=== PATIENT | female | born 1940 | race Caucasian/White ===

== ENCOUNTER 2021-02-09 08:07 | Outpatient (REF) | payer MEDICARE, SELFPAY | END 2021-02-09 08:08 | disposition home or self-care (01) | LOC: HO.10HDL 08:07 | PROVIDERS: Visit Provider Internal Medicine | DX: Z13.89 Encounter for screening for other disorder (principal) ==

== ENCOUNTER 2021-02-09 08:12 | Outpatient (REF) | payer MEDICARE, SELFPAY ==
[2021-02-09 10:28] LABS: Cholesterol 167 mg/dL; HDL Cholesterol 64 mg/dL; LDL Cholesterol Calculated 89 mg/dl; Triglycerides 71 mg/dL
== END 2021-02-09 08:13 | disposition home or self-care (01) ==
LOC: HO.10HDL 08:12
PROVIDERS: Visit Provider Internal Medicine
DX: E11.9 Type 2 diabetes mellitus without complications (principal)
CPT/HCPCS: 36415; 80061

== ENCOUNTER 2021-05-16 07:42 | Outpatient (REF) | payer MEDICARE, SELFPAY ==
[2021-05-16 10:50] LABS: Alanine Aminotransferase 12 U/L (0-31); Albumin Level 3.9 g/dL (3.5-5.0); Alkaline Phosphatase 67 U/L (39-117); Anion Gap 14 (12-20); Aspartate Amino Transferase 19 U/L (5-31); Bilirubin Total 0.4 mg/dL (0.0-1.0); Blood Urea Nitrogen 26 mg/dL (9-16); Calcium 9.5 mg/dL (8.4-10.2); Carbon Dioxide 24 mmol/L (22-29); Chloride 108 mmol/L (96-108); Cholesterol 170 mg/dL; Estimated Glomerular Filt Rate 41; Glucose Fasting 102 mg/dL (60-99); HDL Cholesterol 64 mg/dL; LDL Cholesterol Calculated 89 mg/dl; Potassium 3.8 mmol/L (3.3-5.1); Sodium 142 mmol/L (135-145); Total Protein 6.3 g/dL (6.5-8.0); Triglycerides 85 mg/dL
== END 2021-05-16 07:43 | disposition home or self-care (01) ==
LOC: HO.10HDL 07:42
PROVIDERS: Visit Provider Internal Medicine
DX: E11.9 Type 2 diabetes mellitus without complications (principal); I10 Essential (primary) hypertension
CPT/HCPCS: 36415; 80053; 80061

== ENCOUNTER 2021-08-17 14:35 | Outpatient (REF) | payer MEDICARE, SELFPAY ==
--- NOTE | ~2021-08-17 | XR_ITS ---
EXAMINATION: XR CHEST CLINICAL INFORMATION: Pleurisy COMPARISON: Chest x-ray 11/19/2016 TECHNIQUE: 2 views of the chest were obtained. FINDINGS: Hyperinflation of lungs. No acute airways disease. There is no pleural effusion, no pneumothorax. The heart size is normal. The cardiac and mediastinal contours are normal. Kyphosis of dorsal spine. Multilevel compression deformities of the midthoracic vertebrae. There is been progressive loss of height of the T7 vertebrae. Similar loss of height to prior study of 2017 of the T4 and T6 vertebrae. Multilevel degenerative endplate spurring, degenerative disc disease. Old healed rib fractures of the posterior lateral right sixth and seventh ribs. XR/XR chest 2V IMPRESSION: 1. No acute abdomen abnormality. 2. Emphysema is hyperinflation of lungs. 3. Kyphosis of dorsal spine of multilevel compression deformities of the vertebrae.
== END 2021-08-17 14:36 | disposition home or self-care (01) ==
LOC: HO.XRAY 14:35
PROVIDERS: PCP Internal Medicine; Visit Provider Internal Medicine
DX: R09.1 Pleurisy (principal)
CPT/HCPCS: 71046

== ENCOUNTER 2022-03-16 08:41 | Outpatient (REF) | payer MEDICARE, SELFPAY ==
[2022-03-16 10:10] LABS: MANUAL DIFF FLAG NO
[2022-03-16 10:12] LABS: Basophils Absolute Auto 0.1 X10*3/uL (0.0-0.2); Basophils Percent Auto 0.9 % (0-2); Eosinophils Absolute Auto 0.3 X10*3/uL (0.0-0.4); Eosinophils Percent Auto 4.3 % (0-4); Hematocrit 42.8 % (37.0-47.0); Imm Gran Abs Auto 0.11 X10*3/uL (0.00-0.03); Imm Gran Pct Auto 1.6 % (0.0-0.4); Lymphocytes Absolute Auto 1.6 X10*3/uL (1.2-4.9); Lymphocytes Percent Auto 22.5 % (20-40); Mean Corpuscular HGB Conc 32.7 g/dl (31.0-35.0); Mean Corpuscular Hemoglobin 30.2 pg (27.0-33.0); Mean Corpuscular Volume 92.4 fL (80.0-98.0); Mean Platelet Volume 11.4 fL (9.4-12.3); Monocytes Absolute Auto 0.6 X10*3/uL (0.1-1.2); Monocytes Percent Auto 8.4 % (2-11); Neutrophils Absolute Auto 4.3 x10*3/uL (2.0-8.3); Neutrophils Percent Auto 62.3 % (45-73); Platelet Count 183 X10*3/uL (160-400); Red Blood Count 4.63 X10*6/uL (4.20-5.50); Red Cell Distribution Width 12.4 % (11.0-16.0); White Blood Count 6.9 X10*3/uL (4.8-10.8)
[2022-03-16 10:37] LABS: Alanine Aminotransferase 12 U/L (0-31); Albumin Level 3.8 g/dL (3.5-5.0); Alkaline Phosphatase 59 U/L (39-117); Anion Gap 11 (12-20); Aspartate Amino Transferase 21 U/L (5-31); Bilirubin Total 0.6 mg/dL (0.0-1.0); Blood Urea Nitrogen 28 mg/dL (9-16); Calcium 9.4 mg/dL (8.4-10.2); Carbon Dioxide 28 mmol/L (22-29); Chloride 106 mmol/L (96-108); Cholesterol 178 mg/dL; Estimated Glomerular Filt Rate 53; Glucose Fasting 94 mg/dL (60-99); HDL Cholesterol 66 mg/dL; LDL Cholesterol Calculated 96 mg/dl; Potassium 4.1 mmol/L (3.3-5.1); Sodium 141 mmol/L (135-145); Total Protein 6.2 g/dL (6.5-8.0); Triglycerides 84 mg/dL
[2022-03-16 10:43] LABS: Thyroid Stimulating Hormone 3.52 uIU/mL (0.32-4.0)
== END 2022-03-16 08:42 | disposition home or self-care (01) ==
LOC: HO.10HDL 08:41
PROVIDERS: Visit Provider Internal Medicine
DX: Z00.00 Encounter for general adult medical examination without abnormal findings (principal); E03.9 Hypothyroidism, unspecified; Z13.0 Encounter for screening for diseases of the blood and blood-forming organs and certain disorders involving the immune mechanism
CPT/HCPCS: 36415; 80053; 80061; 84443; 85025

== ENCOUNTER 2022-07-03 10:14 | Day surgery (SDC) | payer MEDICARE, SELFPAY ==
[2022-06-27 15:19] VITALS: BMI 24.8
--- NOTE | 2022-06-30 08:56 | HO.ANESPROP2 ---
Documented by User: Angela Bryan NP 06/30/22 08:57 HPI - Anesthesia Eval Consult details Narrative: 81yo F for Right Cataract Extraction IOL Insertion PCP cleared No previous cataract on record O2 @ 3L QHS and PRN PMFSH Active Problems Active Problems: All Active Problems (Updated 06/27/22 @ 15:23 by Kim Kohli RN) COPD (chronic obstructive pulmonary disease) (Acute) Adult general medical exam (Acute) Pleurisy (Acute) Hyperlipidemia (Acute) Hypertension (Acute) Past Medical History Medical History COPD (chronic obstructive pulmonary disease) Hyperlipidemia Hypertension On beta messi at home On home O2 Family History Family History Father Medical history unknown Mother Medical history unknown Brother No problems noted. Brother No problems noted. Son No problems noted. Son No problems noted. Daughter No problems noted. Surgical History Surgical History History of hip surgery History of surgery on arm Social History Social History Housing: House Are you a primary team primary care physician to a significant other at home: No Do you presently have visiting nurse or other home services: No Alcohol intake: never Patient Tobacco Use Status: Former Tobacco user Quit Date: 30 yrs ago Tobacco use type: Cigarette e-Cigarette/Vaping Use: Never Used Second Hand Smoke Exposure: No Use of substances other than those prescribed or required for medical reasons: No Have you been hit, kicked, punched, or otherwise hurt by someone within the past year? If so, by whom?: No Are you DNR?: No Advance Directives: No Advance Directives Information Provided: Yes Advance Directives on File: No Recently lost weight without trying: No Eating poorly because of decreased appetite: No Nutrition Risks: No Nutritional Risk Patient : No service: No Current occupational status: retired Current occupational exposures/hazards: No Cognitive needs: No Hearing needs: No Vision needs: No Meds Allergies Allergy/AdvReac Type Severity Reaction Status Date / Time sulfamethoxazole Allergy Unknown RASH Verified 06/23/22 09:02 [From BACTRIM] trimethoprim [From BACTRIM] Allergy Unknown RASH Verified 06/23/22 09:02 Exam Exam Date and Time: June 30, 2022 0856 Height,Weight and Vital Signs: Height 5 ft 6 in Weight 69.853 kg Assessment and Plan Assessment Anesthesia Assessment: Chart Reviewed Documented by User: Sola Cadet MD 07/03/22 11:41 PMFSH Past Medical History Medical History COPD (chronic obstructive pulmonary disease) Hyperlipidemia Hypertension On beta messi at home On home O2 Family History Family History Father Medical history unknown Mother Medical history unknown Brother No problems noted. Brother No problems noted. Son No problems noted. Son No problems noted. Daughter No problems noted. Family history of problems with anesthesia: No Surgical History Surgical History History of hip surgery History of surgery on arm History of Problems with Anesthesia: No Social History Social History Housing: House Are you a primary team primary care physician to a significant other at home: No Do you presently have visiting nurse or other home services: No Alcohol intake: never Patient Tobacco Use Status: Former Tobacco user Quit Date: 30 yrs ago Tobacco use type: Cigarette e-Cigarette/Vaping Use: Never Used Second Hand Smoke Exposure: No Use of substances other than those prescribed or required for medical reasons: No Have you been hit, kicked, punched, or otherwise hurt by someone within the past year? If so, by whom?: No Are you DNR?: No Advance Directives: No Advance Directives Information Provided: Yes Advance Directives on File: No Recently lost weight without trying: No Eating poorly because of decreased appetite: No Nutrition Risks: No Nutritional Risk Patient : No service: No Current occupational status: retired Current occupational exposures/hazards: No Cognitive needs: No Hearing needs: No Vision needs: No Meds Allergies Allergy/AdvReac Type Severity Reaction Status Date / Time sulfamethoxazole Allergy Unknown RASH Verified 06/23/22 09:02 [From BACTRIM] trimethoprim [From BACTRIM] Allergy Unknown RASH Verified 06/23/22 09:02 Exam Height,Weight and Vital Signs: Height 5 ft 6 in Weight 69.853 kg Vital Signs Temp Pulse Resp BP Pulse Ox O2 Del Method 07/03/22 11:30 97 F 83 26 H 154/101 H 90 L Room Air Airway Mallampati Class: II TM Dist: >3cm Neck ROM: Full Denture: Upper Partial: Lower Heart: RRR Lungs: CTAB. No wheezes Assessment and Plan Assessment Anesthesia Assessment: Anesthesia Plan Discussed Final Anesthetic Review Family History of Problems with Anesthesia: No History of Problems with Anesthesia: No NPO: Yes ASA Class: III Final Preanesthetic Review: No Changes in Pt Med Stat, Meds/Allgs Chart Reviewed, Consent Obtained/Reviewed and Anes Risks/Benef Reviewed Patient Risk: Intermediate Procedure Risk: Low Assessment/Block/Sedation in SS: Assess/Block/Sedation-SS Anesthetic Plan Anesthetic Plan: MAC: Disposition: Standard PACU
--- NOTE | 2022-06-30 09:23 | MHC.SHP ---
Pre-Procedural Eval Section A Date of Service: 06/30/22 The patient is an INPATIENT: No Changes since office visit: No Cold of Flu in the past 2 weeks, No New Medical Problems, No Changes in Medication and No Patient answered all questions The History & Physical has been completed within 30 days and I have reviewed it.: Yes Section B Chief Complaint: cataract Allergies: Allergies Allergy/AdvReac Type Severity Reaction Status Date / Time sulfamethoxazole Allergy Unknown RASH Verified 06/23/22 09:02 [From BACTRIM] trimethoprim [From BACTRIM] Allergy Unknown RASH Verified 06/23/22 09:02 Plan Diagnosis/Plan: Unchanged I have reviewed the history and physical and performed a pertinent physical examination on my patient. No changes have occurred unless specified.
[2022-07-03 11:30] VITALS: BP 154/101; PULSE 83; RESP 26; TEMP 36.1; O2SAT 90
[2022-07-03] MEDS: Phenylephrine HCL 2.5% Oph SoL 2 ML BOTTLE 1 DROP EYE-RIGHT ×3 (11:34→11:45)
[2022-07-03] MEDS: Tetracaine HCl/PF 0.5% Oph Sol 4 ML DROPS 1 DROP EYE-RIGHT (11:34)
[2022-07-03] MEDS: Cyclopentolate 1 % Ophth Sol 2 ML DRPBTL 1 DROP EYE-RIGHT ×3 (11:35→11:45)
[2022-07-03] MEDS: Tropicamide 1 % Ophth Sol 3 ML BTL 1 DROP EYE-RIGHT ×3 (11:35→11:45)
[2022-07-03] MEDS: Lactated Ringers 500 ML 50 ML IV (11:47)
--- NOTE | 2022-07-03 13:07 | HO.PNOPHT ---
Ophthalmology Procedure Procedure Date of Service: 07/03/22 Ophthalmology Viscoelastic: Madai Gil Dual Pack Pro Ophthalmology Lenses: TECJULIO CESAR [id number] (21) Procedure Notes: PREOPERATIVE DIAGNOSIS: Decreased visual acuity right eye secondary to cataract POSTOPERATIVE DIAGNOSIS: Same PROCEDURE: Right cataract extraction with intraocular lens insertion Anterior Vitrectomy SURGEON: Leroy Nesbitt M.D. ANESTHESIA: Topical/MAC ESTIMATED BLOOD LOSS: None COMPLICATIONS: Capsular tear After obtaining informed consent, the patient was brought to the operating room suite and placed in the supine position. After adequate sedation per anesthesia, topical drops of Tetracaine were given to the right eye. The eye was then prepped and draped in the usual sterile fashion. The operating room microscope was then positioned over the operative eye and a lid speculum placed. A paracentesis was created. Viscoelastic was then instilled into the anterior chamber. A three plane incision was then created temporally, utilizing a 2.85 mm keratome. Capsulotomy forceps were then utilized to create a circular tear capsulotomy. Hydrodissection and hydrodelineation were carried out until adequate mobilization of the nucleus occurred. Phacoemulsification was then utilized to remove the dense central nucleus. capsular tear was noted requiring an Anterior Vitrectomy. This was followed by removal of the cortical material utilizing the Vitrector. Viscoelastic was instilled into the anterior chamber followed by placement of a posterior chamber intraocular lens into the sulcuswithout difficulty. The residual Viscoelastic was then removed utilizing the automated IA machine. The wound was checked and found to be watertight. The patient tolerated the procedure well and the lid speculum was removed. Intracameral injection of Vigamox 0.1 mL followed by a subtenon injection of Kenalog-40 0.2 mL were administered. The patient will be seen in the a.m.
[2022-07-03 13:39] VITALS: BP 138/61; PULSE 63; RESP 18; TEMP 36.1; O2SAT 99
== END 2022-07-03 14:00 | disposition home or self-care (01) ==
PROVIDERS: PCP Internal Medicine; Visit Provider Ophthalmology
PROC: (CPT 66985; principal; 2022-07-03 13:00)
DX: H25.11 Age-related nuclear cataract, right eye (principal); H54.7 Unspecified visual loss; H59.211 Accidental puncture and laceration of right eye and adnexa during an ophthalmic procedure; Y84.8 Other medical procedures as the cause of abnormal reaction of the patient, or of later complication, without mention of misadventure at the time of the procedure; Y92.234 Operating room of hospital as the place of occurrence of the external cause; Y77.8 Miscellaneous ophthalmic devices associated with adverse incidents, not elsewhere classified; J44.9 Chronic obstructive pulmonary disease, unspecified; I10 Essential (primary) hypertension; E78.5 Hyperlipidemia, unspecified; Z79.899 Other long term (current) drug therapy; Z88.2 Allergy status to sulfonamides; Z87.891 Personal history of nicotine dependence
CPT/HCPCS: 66984; J2250; J3010; J3300; V2632

== ENCOUNTER 2022-07-17 08:40 | Day surgery (SDC) | payer MEDICARE, SELFPAY ==
[2022-06-27 15:29] VITALS: BMI 24.8
--- NOTE | 2022-07-13 15:28 | MHC.SHP ---
Pre-Procedural Eval Section A Date of Service: 07/13/22 The patient is an INPATIENT: No Changes since office visit: No Cold of Flu in the past 2 weeks, No New Medical Problems, No Changes in Medication and No Patient answered all questions The History & Physical has been completed within 30 days and I have reviewed it.: Yes Section B Chief Complaint: cataract Allergies: Allergies Allergy/AdvReac Type Severity Reaction Status Date / Time sulfamethoxazole Allergy Unknown RASH Verified 06/23/22 09:02 [From BACTRIM] trimethoprim [From BACTRIM] Allergy Unknown RASH Verified 06/23/22 09:02 Plan Diagnosis/Plan: Unchanged I have reviewed the history and physical and performed a pertinent physical examination on my patient. No changes have occurred unless specified.
--- NOTE | 2022-07-14 08:48 | HO.ANESPROP2 ---
Documented by User: Angela Bryan NP 07/14/22 08:49 HPI - Anesthesia Eval Consult details Narrative: 81yo F for Left Cataract Extraction IOL Insertion PCP cleared Right eye 07/03/22 with MAC: Fent 50, Midaz 0.5 O2 @ 3L QHS and prn PMFSH Active Problems Active Problems: All Active Problems (Updated 06/27/22 @ 15:23 by Kim Kohli RN) COPD (chronic obstructive pulmonary disease) (Acute) Adult general medical exam (Acute) Pleurisy (Acute) Hyperlipidemia (Acute) Hypertension (Acute) Past Medical History Medical History COPD (chronic obstructive pulmonary disease) Hyperlipidemia Hypertension On beta messi at home On home O2 Family History Family History Father Medical history unknown Mother Medical history unknown Brother No problems noted. Brother No problems noted. Son No problems noted. Son No problems noted. Daughter No problems noted. Family history of problems with anesthesia: No Surgical History Surgical History History of cataract extraction History of hip surgery History of surgery on arm History of Problems with Anesthesia: No Social History Social History Housing: House Are you a primary healthcare administrative assistant to a significant other at home: No Do you presently have visiting nurse or other home services: No Alcohol intake: never Patient Tobacco Use Status: Former Tobacco user Quit Date: 30 yrs ago Tobacco use type: Cigarette e-Cigarette/Vaping Use: Never Used Second Hand Smoke Exposure: No Use of substances other than those prescribed or required for medical reasons: No Have you been hit, kicked, punched, or otherwise hurt by someone within the past year? If so, by whom?: No Are you DNR?: No Advance Directives: No Advance Directives Information Provided: Yes Advance Directives on File: No Recently lost weight without trying: No Nutrition Risks: No Nutritional Risk service: No Current occupational status: retired Current occupational exposures/hazards: No Cognitive needs: No Hearing needs: No Vision needs: No Meds Allergies Allergy/AdvReac Type Severity Reaction Status Date / Time sulfamethoxazole Allergy Unknown RASH Verified 07/17/22 10:10 [From BACTRIM] trimethoprim [From BACTRIM] Allergy Unknown RASH Verified 07/17/22 10:11 Exam Exam Date and Time: July 14, 2022 0848 Height,Weight and Vital Signs: Height 5 ft 6 in Weight 69.853 kg Assessment and Plan Assessment Anesthesia Assessment: Chart Reviewed Final Anesthetic Review Family History of Problems with Anesthesia: No History of Problems with Anesthesia: No Documented by User: Naif Muir MD 07/17/22 10:15 PMF Past Medical History Medical History COPD (chronic obstructive pulmonary disease) Hyperlipidemia Hypertension On beta messi at home On home O2 Family History Family History Father Medical history unknown Mother Medical history unknown Brother No problems noted. Brother No problems noted. Son No problems noted. Son No problems noted. Daughter No problems noted. Surgical History Surgical History History of cataract extraction History of hip surgery History of surgery on arm Social History Social History Housing: House Are you a primary healthcare administrative assistant to a significant other at home: No Do you presently have visiting nurse or other home services: No Alcohol intake: never Patient Tobacco Use Status: Former Tobacco user Quit Date: 30 yrs ago Tobacco use type: Cigarette e-Cigarette/Vaping Use: Never Used Second Hand Smoke Exposure: No Use of substances other than those prescribed or required for medical reasons: No Have you been hit, kicked, punched, or otherwise hurt by someone within the past year? If so, by whom?: No Are you DNR?: No Advance Directives: No Advance Directives Information Provided: Yes Advance Directives on File: No Recently lost weight without trying: No Nutrition Risks: No Nutritional Risk service: No Current occupational status: retired Current occupational exposures/hazards: No Cognitive needs: No Hearing needs: No Vision needs: No Meds Allergies Allergy/AdvReac Type Severity Reaction Status Date / Time sulfamethoxazole Allergy Unknown RASH Verified 07/17/22 10:10 [From BACTRIM] trimethoprim [From BACTRIM] Allergy Unknown RASH Verified 07/17/22 10:11 Exam Airway Mallampati Class: II TM Dist: >3cm Neck ROM: Full Denture: Upper Partial: Lower Loose/Missing/Broken Teeth: Yes Heart: rrr+[id number] Lungs: cta b/l Assessment and Plan Assessment Anesthesia Assessment: Anesthesia Plan Discussed Final Anesthetic Review NPO: Yes ASA Class: III Final Preanesthetic Review: No Changes in Pt Med Stat, Meds/Allgs Chart Reviewed, Consent Obtained/Reviewed and Anes Risks/Benef Reviewed Patient Risk: Intermediate Procedure Risk: Low Assessment/Block/Sedation in SS: Assess/Block/Sedation-SS Anesthetic Plan Anesthetic Plan: MAC: and Agree w/ Assess. and Plan Disposition: Standard PACU
[2022-07-17] MEDS: Lactated Ringers 500 ML 50 ML IV (10:05)
[2022-07-17] MEDS: Tropicamide 1 % Ophth Sol 3 ML BTL 1 DROP EYE-LEFT ×3 (10:06→10:17)
[2022-07-17] MEDS: Cyclopentolate 1 % Ophth Sol 2 ML DRPBTL 1 DROP EYE-LEFT ×3 (10:06→10:17)
[2022-07-17] MEDS: Phenylephrine HCL 2.5% Oph SoL 2 ML BOTTLE 1 DROP EYE-LEFT ×3 (10:06→10:17)
[2022-07-17] MEDS: Tetracaine HCl/PF 0.5% Oph Sol 4 ML DROPS 1 DROP EYE-LEFT (10:06)
[2022-07-17] MEDS: Ketorolac Tromethamine 0.5% Op 5 ML DROPS 1 DROP EYE-LEFT ×3 (10:07→10:18)
[2022-07-17 10:16] VITALS: BP 176/76; PULSE 65; RESP 18; TEMP 36.6; O2SAT 100
--- NOTE | 2022-07-17 11:53 | HO.PNOPHT ---
Ophthalmology Procedure Procedure Date of Service: 07/17/22 Ophthalmology Viscoelastic: Healon Duet Dual Pack Pro Ophthalmology Lenses: TECNIS [id number] (20.5) Procedure Notes: PREOPERATIVE DIAGNOSIS: Decreased visual acuity left eye secondary to cataract POSTOPERATIVE DIAGNOSIS: Same PROCEDURE: Left cataract extraction with intraocular lens insertion SURGEON: Leroy Nesbitt M.D. ANESTHESIA: Topical/MAC ESTIMATED BLOOD LOSS: None COMPLICATIONS: None After obtaining informed consent, the patient was brought to the operation room suite and placed in the supine position. After adequate sedation per anesthesia, topical drops of Tetracaine were given to the left eye. The eye was then prepped and draped in the usual sterile fashion. The operating room microscope was then positioned over the operative eye and a lid speculum placed. A paracentesis was created. Viscoelastic was then instilled into the anterior chamber. A three plane incision was then created temporally, utilizing a 2.85 mm keratome. Capsulotomy forceps were then utilized to create a circular tear capsulotomy. Hydrodissection and hydrodelineation were carried out until adequate mobilization of the nucleus occurred. Phacoemulsification was then utilized to remove the dense central nucleus followed by removal of the cortical material utilizing the automated aspiration irrigation unit. Viscoat elastic was instilled into the posterior capsular bag followed by placement of a posterior chamber intraocular lens without difficulty. The residual Viscoat elastic was then removed utilizing the automated IA machine. The wound was check and found to be watertight. The patient tolerated the procedure well and the lid speculum was removed. Intracameral injection of Vigamox 0.1 mL followed by a subtenon injection of Kenalog-40 0.2 mL were administered. The patient will be seen in the a.m.
[2022-07-17 12:20] VITALS: BP 160/80; PULSE 65; RESP 16; TEMP 36.4; O2SAT 98
== END 2022-07-17 12:42 | disposition home or self-care (01) ==
PROVIDERS: PCP Internal Medicine; Visit Provider Ophthalmology
PROC: (CPT 66985; principal; 2022-07-17 10:50)
DX: H25.12 Age-related nuclear cataract, left eye (principal); H40.213 Acute angle-closure glaucoma, bilateral; H52.4 Presbyopia; I10 Essential (primary) hypertension; J44.9 Chronic obstructive pulmonary disease, unspecified; E78.00 Pure hypercholesterolemia, unspecified; Z79.51 Long term (current) use of inhaled steroids; Z79.899 Other long term (current) drug therapy; Z88.2 Allergy status to sulfonamides; Z87.891 Personal history of nicotine dependence
CPT/HCPCS: 66984; J2250; J3300; V2632

== ENCOUNTER 2023-06-29 08:23 | Outpatient (AMB) | payer MEDICARE, SELFPAY ==
[2023-06-29 08:32] VITALS: BP 134/76; PULSE 58; O2SAT 93; BMI 24.4
--- NOTE | 2023-06-29 08:32 | A.OFFPC_ITS ---
Vital Signs 06/29/23 08:32 Height 5 ft 6 in Weight 151 lb BMI 24.4 BP 134/76 Blood Pressure Location Rt brachial Position Sitting Pulse 58 Pulse Source Pulse Oximeter Pulse Oximetry (%) 93 Oxygen Delivery Method Room Air Intake Visit Reasons: 3mth f/u Allergies sulfamethoxazole [From BACTRIM] Allergy (Unknown, Verified 06/29/23 08:32) RASH trimethoprim [From BACTRIM] Allergy (Unknown, Verified 06/29/23 08:32) RASH Medication List - Last Reconciled 06/29/23 by Liam Lloyd MD albuterol sulfate 90 mcg/actuation 2 puffs inhalation Q4-6H PRN amlodipine 5 mg PO DAILY budesonide-formoterol 80-4.5 mcg/actuation (Symbicort) 2 puffs inhalation Q12H 90 days ipratropium bromide 17 mcg/actuation (Atrovent HFA) 2 inhalations PO QID metoprolol tartrate 50 mg PO DAILY simvastatin 20 mg PO DAILY triamterene-hydrochlorothiazid 37.5-25 mg 1 cap PO QAM Tobacco use date assessed: 11/29/22 Fall risk assessment: No Falls in past year Last assessed Fall Risk: 06/29/23 Dental Screening Dental Screen Date: 06/29/23 Did you have a dental visit in the last 12 months?: No Did you have a dental problem in the last 6 months where you did not have access to dental care?: No Was dental information given to patient?: No HPI 3mth f/u HPI Details COPD HTN hyperlip on rx; due for labs PFSH Medical History COPD (chronic obstructive pulmonary disease) Hyperlipidemia Hypertension On beta messi at home On home O2 Surgical History History of cataract extraction History of hip surgery History of surgery on arm Family History Father Medical history unknown Mother Medical history unknown Brother No problems noted. Brother No problems noted. Son No problems noted. Son No problems noted. Daughter No problems noted. Social History Housing: House Are you a primary hospice care transitions coordinator to a significant other at home: No Do you presently have visiting nurse or other home services: No Alcohol intake: never Patient Tobacco Use Status: Former Tobacco user Quit Date: 30 yrs ago Tobacco use type: Cigarette e-Cigarette/Vaping Use: Never Used Second Hand Smoke Exposure: No service: No Current occupational status: retired Current occupational exposures/hazards: No Cognitive needs: No Hearing needs: No Vision needs: No Questionnaire PHQ-9 Over the last 2 weeks, how often have you been bothered by any of the following problems? 1. Little interest or pleasure in doing things: not at all 2. Feeling down, depressed, or hopeless: not at all 3. Trouble falling or staying asleep, or sleeping too much: not at all 4. Feeling tired or having little energy: not at all 5. Poor appetite or overeating: not at all 6. Feeling bad about yourself - or that you are a failure or have let yourself or your family down: not at all 7. Trouble concentrating on things, such as reading the newspaper or watching television: not at all 8. Moving or speaking so slowly that other people could have noticed. Or the opposite - being so fidgety or restless that you have been moving around a lot more than usual: not at all 9. Thoughts that you would be better off or of hurting yourself in some way: not at all Total score: 0 Depression Screening Interpretation: Negative [id number] - PHQ-9 Billing: Yes Source: Developed by Drs. Yeyo Wright, Samira Srivastava, Ernie Mcdonald and colleagues, with an educational monica from [employer]. Thrive Questionnaire Date Thrive assessed: 11/29/22 AUDIT C Alcohol Use Questionnaire (AUDIT-C) 1. How often do you have a drink containing alcohol?: Never Total Score: 0 Score Reviewed/Action Taken: Yes SOFIA-7 AMB Questionnaire SOFIA-7 Date SOFIA - 7 assessed: 11/29/22 Source: Developed by Drs. Yeyo Wright, Samira Srivastava, Ernie Mcdonald and colleagues, with an educational monica from [employer]. Review of Systems Const Denies chills, Denies headache(s) and Denies weight loss ENT Denies headache(s) Card Denies chest pain, Denies syncope, Denies irregular heart rhythm and Denies dyspnea Resp Denies chest congestion, Denies cough and Denies dyspnea GI Denies abdominal pain, Denies change in stool character, Denies nausea and Denies vomiting Musc Denies deformity and Denies joint swelling Neuro Denies syncope and Denies headache(s) Physical exam (Primary Care) Vital Signs: Last Vital Signs Pulse 58 06/29/23 08:32 BP 134/76 06/29/23 08:32 Pulse Ox 93 06/29/23 08:32 Oxygen Delivery Method Room Air 06/29/23 08:32 BMI result Body Mass Index 24.4 Tobacco/Smoking Status: Tobacco use Status Tobacco use date assessed 11/29/22 06/29/23 08:37 Patient Tobacco Use Status Former Tobacco user 06/29/23 08:37 Tobacco use type Cigarette 06/29/23 08:37 e-Cigarette/Vaping Use Never Used 06/29/23 08:37 PHQ-9: PHQ-9 Score PHQ-9: Total score 0 06/29/23 08:37 Depression Screening Interpretation: Negative Thrive Assessment: Date of Thrive Assessment Date Thrive assessed 11/29/22 06/29/23 08:37 Const General: cooperative, comfortable, no acute distress and alert Neck Neck: Yes no lymphadenopathy Thyroid: Thyroid normal Resp Effort & Inspection: normal respiratory effort Auscultation: clear to auscultation bilaterally Percussion: percussion normal Cardio Jugular venous distension: no JVD Palpation: normal PMI Rate: regular rate Rhythm: regular rhythm Heart sounds: S1 normal heart sound present and S2 normal heart sound present GI Inspection: Yes normal to inspection Palpation (GI): No hepatosplenomegaly present Skin General skin exam: no rashes or lesions noted Extrem General: Yes no clubbing, cyanosis or edema Assessment and Plan Assessment & Plan (1) COPD (chronic obstructive pulmonary disease): Code(s): J44.9 - Chronic obstructive pulmonary disease, unspecified Plan: stable; same rx (2) Hyperlipidemia: Code(s): E78.5 - Hyperlipidemia, unspecified Plan: stable; same rx (3) Hypertension: Code(s): I10 - Essential (primary) hypertension Plan: stable; same rx Coding Level of Care Code Est Pt Level 4 (33159) Diagnoses COPD (chronic obstructive pulmonary disease) J44.9 Hyperlipidemia E78.5 Hypertension I10
== END 2023-06-29 08:55 | disposition home or self-care (01) ==
PROVIDERS: PCP Internal Medicine; Visit Provider Internal Medicine
DX: J44.9 Chronic obstructive pulmonary disease, unspecified (principal); E78.5 Hyperlipidemia, unspecified; I10 Essential (primary) hypertension
CPT/HCPCS: 99214

== ENCOUNTER 2023-08-20 15:40 | Emergency (ER) | payer MEDICARE, SELFPAY ==
--- NOTE | ~2023-08-20 | XR_ITS ---
EXAMINATION: XR HIP, RIGHT AND AP PELVIS CLINICAL INFORMATION: Pain COMPARISON: None available. TECHNIQUE: A frontal radiograph of the pelvis and frontal and frog lateral radiographs were acquired of the right hip. FINDINGS: A side plate and screw transfix the right femoral neck. No acute fracture is identified. The humeral head is located in the acetabulum intact. No pelvic fracture is evident. The sacrum and sacroiliac joints are unremarkable. XR/XR hip RT w PEL1V IMPRESSION: 1. Prior surgical fixation of the right proximal femur. 2. No acute right hip or pelvic fracture.
--- NOTE | ~2023-08-20 | XR_ITS ---
EXAMINATION: XR LUMBOSACRAL SPINE CLINICAL INFORMATION: Low back pain COMPARISON: None available. TECHNIQUE: Three views of the lumbosacral spine. FINDINGS: There is normal lumbar lordosis. There is loss of T12 vertebral height of indeterminate age. The lumbar vertebral heights and alignment are maintained normal. Lumbar disc heights are maintained normal. No lytic or sclerotic process seen. SI joints are symmetrical and normal. There is diffuse osteopenia. XR/XR lumbar spine 2-3V IMPRESSION: T12 vertebral compression fracture of indeterminate age. If patient has acute pain in this region, MRI or bone scan can be performed. There is no acute fracture, lytic or sclerotic process and lumbar spine. Diffuse osteopenia.
--- NOTE | 2023-08-20 16:01 | ED.GENADULT ---
HPI - General Adult General Chief complaint: Extremity Problem Stated complaint: right hip and buttocks pain Time Seen by Provider: 08/20/23 17:21 Source: patient Mode of arrival: ambulatory Limitations: no limitations History of Present Illness HPI narrative: 82-year-old female history of COPD on 2 L nasal cannula at baseline, hypertension presents for evaluation of lower back pain with intermittent radiation to right lower extremity to above the right knee, patient reports pain is been going on for the past few days worsening, she reports she went online and Google this and found some stretches which may have made the pain worse. She denies any associated trauma. Denies weakness, urinary/bowel incontinence/retention, numbness, tingling, fevers, chills. Has been taking acetaminophen with little to no relief. Reports ambulating has been difficult secondary to pain. Related Data Previous Rx's Medication Instructions Recorded albuterol sulfate 90 mcg/actuation 2 puff inhalation Q4-6H PRN 11/15/20 aerosol inhaler shortness of breath or wheezing #8.5 grams budesonide-formoterol HFA 80 2 puff inhalation Q12H 90 days 11/21/22 mcg-4.5 mcg/actuation aerosol #30.6 grams inhaler (Symbicort) ipratropium bromide 17 2 inh PO QID #51.6 grams 11/26/22 mcg/actuation HFA aerosol inhaler (Atrovent HFA) triamterene 37.5 1 cap PO QAM #90 caps 11/29/22 mg-hydrochlorothiazide 25 mg capsule amlodipine 5 mg tablet 5 mg PO DAILY #90 tabs 07/18/23 metoprolol tartrate 50 mg tablet 50 mg PO DAILY #90 tabs 07/18/23 simvastatin 20 mg tablet 20 mg PO DAILY #90 tabs 07/18/23 lidocaine 5 % topical patch 1 patch topical DAILY PRN pain #15 08/20/23 ea morphine 15 mg immediate release 15 mg PO Q6H PRN pain 5 days #10 08/20/23 tablet tabs Allergies Allergy/AdvReac Type Severity Reaction Status Date / Time sulfamethoxazole Allergy Unknown RASH Verified 06/29/23 08:32 [From BACTRIM] trimethoprim [From BACTRIM] Allergy Unknown RASH Verified 06/29/23 08:32 Review of Systems Review of Systems: Constitutional : No Weight loss, No Fever, No Chills, ENT/Mouth : No Hearing loss, No Ear Pain, No Nasal Congestion, No Sinus Pain, No Hoarseness, No sore throat, No Rhinorrhea, No Swallowing Difficulty Cardiovascular : No Chest Pain, No SOB Respiratory : No Cough, No Dyspnea Gastrointestinal : No Nausea, No Vomiting, No Diarrhea, No abdominal Pain, No Hematochezia, No Melena Genitourinary : No Dysuria, No Urinary Frequency, No Hematuria, No Urinary Incontinence, Musculoskeletal : positive back pain Skin : No Skin Lesions, No rash Neuro : No Weakness, No Numbness, No Paresthesias, no loss of bowel or bladder incontinence, no saddle anesthesia Yes all other systems are reviewed and are negative [facility] Past Medical History Attestation statement: The following information was validated with the patient. Source: old records reviewed and nursing notes reviewed Medical History COPD (chronic obstructive pulmonary disease) Hyperlipidemia Hypertension On beta messi at home On home O2 Surgical History History of cataract extraction History of hip surgery History of surgery on arm Family History Family History Father Medical history unknown Mother Medical history unknown Brother No problems noted. Brother No problems noted. Son No problems noted. Son No problems noted. Daughter No problems noted. Social History Social History Housing: House Are you a primary direct care supervisor to a significant other at home: No Do you presently have visiting nurse or other home services: No Alcohol intake: never Patient Tobacco Use Status: Former Tobacco user Quit Date: 30 yrs ago Tobacco use type: Cigarette e-Cigarette/Vaping Use: Never Used Second Hand Smoke Exposure: No Advance Directives: No Advance Directives Information Provided: No service: No Current occupational status: retired Current occupational exposures/hazards: No Cognitive needs: No Hearing needs: No Vision needs: No Physical Exam ED Vital Signs: Vital Signs - 24 hr 08/20/23 16:04 Temperature 98.0 F Pulse Rate 74 Respiratory Rate 18 Blood Pressure 155/74 H Pulse Oximetry 93 Oxygen Delivery Method Room Air BMI result Body Mass Index 25.7 vss Appearance: Alert.? Oriented X3.? No acute distress.? Head: Normocephalic, atraumatic, no step-offs or deformities Eyes: Pupils equal, round and reactive to light.? ENT: Pharynx normal.? Neck: Normal inspection.? Neck supple.? CVS: Normal heart rate and rhythm.? Pulses normal.? Respiratory: No respiratory distress.? Breath sounds normal.? Abdomen: Soft and nontender.? Skin: Skin warm and dry.? Normal skin color.? Normal skin turgor.? Extremities: No lower extremity edema.? No calf ttp. 5/5 strength to bilateral upper and lower extremities Back: No midline tenderness, no C-spine tenderness, full range of motion, no CVA tenderness bilaterally no discomfort with palpation of vertebral spine in the lumbar, thoracic or cervical region. No paraspinous tenderness. Patient reports pain with range of motion. Ambulating with slow steady gait. Neuro: Oriented X 3.? No motor deficit.? No sensory deficit. CN 2-12 intact Course Course Course Narrative: RME performed by Yesica Guajardo PA-C. Patient is an 82 year old assigned female at presenting to the emergency department with right hip and buttock pain. Imaging ordered. Patient placed back in the waiting room pending room availability and results. Reevaluation(s) Reevaluation #1: X-ray of lumbar spine showing a T12 vertebral compression fracture of indeterminate age, no point tenderness on exam. No acute fracture lytic or sclerotic process to the lumbar spine. Diffuse osteopenia. X-ray of hip and pelvis no acute right hip or pelvic fracture. Prior surgical fixation of the right proximal femur. No acute findings. Will give morphine for pain, Lidoderm patch and re-evaluate. Educated patient on diagnosis and treatment plan, answered all question, patient verbalizes understanding. At this time patient will be discharged home, advised to return with new or worsening symptoms. Educated on worrisome signs and symptoms and when to return. At this time I feel comfortable discharge home. Time: 18:48 Medical Decision Making Medical Decision Making MDM Narrative: 82-year-old female presents with back pain without red flag symptoms for the past few days not improving with acetaminophen. Here with daughter. Physical exam slight pain with range of motion. No midline tenderness. No associated paraspinous muscle spasm. Negative straight leg raise bilaterally. Slow ambulation. No saddle paresthesia. No focal neuro deficits. Likely lumbago versus lumbar radiculopathy versus sciatica will rule out compression fractures. No signs of cauda equina, cord compression, epidural abscess. Plan imaging Differential Diagnosis Differential Diagnoses: The differential diagnosis associated with the presentation includes Likely lumbago versus lumbar radiculopathy versus sciatica will rule out compression fractures. No signs of cauda equina, cord compression, epidural abscess. Admission/Observation Consideration of admission/observation: Escalation of care including admission/observation considered Independent Interpretation I performed an independent interpretation of an: Plain X-Ray Radiology Impression Discussion of test interpretation with radiology: I have reviewed the radiologist's reading. Independent Historian Clinical information obtained from an independent historian. History obtained from or confirmed by: Other (Daughter) Prescription Management I considered prescription management with: Pain Medication (Morphine went over risks of taking this medication and safe use, daughter and patient verbalized agreement to taking this with caution.) Discharge Plan Discharge Clinical Impression: Lower back pain, T12 compression fracture Patient Disposition: Home, Self-Care Instructions: Vertebral Compression Fracture (ED), Back Pain (ED) Additional Instructions: Take your medications as prescribed. If you were prescribed antibiotics today, it is important that you take your medication to their entirety, do not skip any doses, do not finish them early. Follow-up with your primary care provider this week. Return to the emergency department with new or worsening symptoms. Such as fevers, chills, chest pain, shortness of breath, nausea, vomiting, dizziness, headache, vision changes, lethargy In case of emergency call 911 A narcotic has been sent to your pharmacy please take this as prescribed. Do not take more than the prescribed dose. Narcotic medications can cause addiction. Please do not mix them with alcohol. Do not take them while driving or operating machinery. Do not take them with any other narcotics. Do not share them with friends or family. They can cause constipation, consider taking [id number] stool softener. Take them only for severe pain. XR/XR lumbar spine 2-3V IMPRESSION: T12 vertebral compression fracture of indeterminate age. If patient has acute pain in this region, MRI or bone scan can be performed. There is no acute fracture, lytic or sclerotic process and lumbar spine. Diffuse osteopenia. XR/XR hip RT w PEL1V IMPRESSION: 1. Prior surgical fixation of the right proximal femur. 2. No acute right hip or pelvic fracture. Prescriptions: New lidocaine 5 % adhesive patch,medicated 1 patch topical DAILY PRN (Reason: pain) Qty: 15 0RF Rx Instructions: leave on most painful area for up to 12 hrs morphine 15 mg tablet 15 mg PO Q6H PRN (Reason: pain) 5 Days Qty: 10 0RF Rx Instructions: Partial Fill upon patient request. No Action albuterol sulfate 90 mcg/actuation HFA aerosol inhaler 2 puff inhalation Q4-6H PRN (Reason: shortness of breath or wheezing) Qty: 8.5 8RF budesonide-formoterol [Symbicort] 80-4.5 mcg/actuation HFA aerosol inhaler 2 puff inhalation Q12H 90 Days Qty: 30.6 8RF Atrovent HFA 17 mcg/actuation HFA aerosol inhaler 2 inh PO QID Qty: 51.6 3RF triamterene-hydrochlorothiazid 37.5-25 mg capsule 1 cap PO QAM Qty: 90 8RF metoprolol tartrate 50 mg tablet 50 mg PO DAILY Qty: 90 8RF simvastatin 20 mg tablet 20 mg PO DAILY Qty: 90 8RF amlodipine 5 mg tablet 5 mg PO DAILY Qty: 90 8RF Referrals: [facility] [Provider Group] - 2 days Liam Lloyd MD [Primary Care Provider] - 2 days Stand Alone Forms: Work/School Release
[2023-08-20 16:04] VITALS: BP 155/74; PULSE 74; RESP 18; TEMP 36.7; O2SAT 93; BMI 25.7
[2023-08-20] MEDS: Morphine Sulfate Immed Release 15 MG TABLET PO (18:46)
[2023-08-20] MEDS: Lidocaine 4 % Patch ADH..PATCH 1 PATCH TRANSDERMA (18:46)
--- NOTE | 2023-08-20 18:49 | PC.NURSE ---
pt medicated per NOV for 510 lower back and rt hip.
== END 2023-08-20 19:14 | disposition home or self-care (01) ==
PROVIDERS: Emergency Provider Student in an Organized Health Care Education/Training Program; PCP Internal Medicine
DX: M54.50 Low back pain, unspecified (principal); M48.54XA Collapsed vertebra, not elsewhere classified, thoracic region, initial encounter for fracture; I10 Essential (primary) hypertension; E78.5 Hyperlipidemia, unspecified; J44.9 Chronic obstructive pulmonary disease, unspecified; Z99.81 Dependence on supplemental oxygen; Z79.02 Long term (current) use of antithrombotics/antiplatelets; Z87.891 Personal history of nicotine dependence
CPT/HCPCS: 72100; 73502; 99283

== ENCOUNTER 2023-11-16 08:35 | Outpatient (AMB) | payer MEDICARE, SELFPAY ==
[2023-11-16 08:43] VITALS: BP 142/70; PULSE 64; O2SAT 89
--- NOTE | 2023-11-16 08:43 | MHC.PC.OV ---
Vital Signs 11/16/23 08:43 Height 5 ft 4 in BMI Reason not done Patient refused/unable BP 142/70 H Blood Pressure Location Rt brachial Position Sitting Pulse 64 Pulse Source Pulse Oximeter Pulse Oximetry (%) 89 L Oxygen Delivery Method Room Air Intake Visit Reasons: 3mth follow up Hypothyroidism Asp Web Developer: Not Required per policy Accompanied by: Self / Same As Patient Allergies sulfamethoxazole [From BACTRIM] Allergy (Unknown, Verified 11/16/23 08:43) RASH trimethoprim [From BACTRIM] Allergy (Unknown, Verified 11/16/23 08:43) RASH Medication List - Last Reconciled 11/16/23 by Liam Lloyd MD albuterol sulfate 90 mcg/actuation 2 puffs inhalation Q4-6H PRN amlodipine 5 mg PO DAILY fluticasone propion-salmeterol 250-50 mcg/dose (Wixela Inhub) 1 inh inhalation BID fluticasone propion-salmeterol 45-21 mcg/actuation (Advair HFA) 2 puffs inhalation BID ipratropium bromide 17 mcg/actuation (Atrovent HFA) 2 inhalations PO QID lidocaine 5% 1 patch topical DAILY PRN metoprolol tartrate 50 mg PO DAILY morphine 15 mg PO Q6H PRN 5 days simvastatin 20 mg PO DAILY triamterene-hydrochlorothiazid 37.5-25 mg 1 cap PO QAM Tobacco use date assessed: 11/16/23 Fall risk assessment: No Falls in past year Last assessed Fall Risk: 11/16/23 Dental Screening Dental Screen Date: 11/16/23 Did you have a dental visit in the last 12 months?: Yes Did you have a dental problem in the last 6 months where you did not have access to dental care?: No Was dental information given to patient?: Patient has dentist HPI 3mth follow up Hypothyroidism HPI Details COPD HTN and hyperlip; stable on rx PFSH Medical History COPD (chronic obstructive pulmonary disease) Hyperlipidemia Hypertension On beta messi at home On home O2 Surgical History History of cataract extraction History of surgery on arm History of hip surgery Family History Father Medical history unknown Mother Medical history unknown Brother No problems noted. Brother No problems noted. Son No problems noted. Son No problems noted. Daughter No problems noted. Social History Housing: House Are you a primary infant childcare provider to a significant other at home: No Do you presently have visiting nurse or other home services: No Alcohol intake: never Patient Tobacco Use Status: Former Tobacco user Quit Date: 30 yrs ago Tobacco use type: Cigarette e-Cigarette/Vaping Use: Never Used Second Hand Smoke Exposure: No service: No Current occupational status: retired Current occupational exposures/hazards: No Cognitive needs: Yes Hearing needs: No Vision needs: No Questionnaire PHQ-9 Over the last 2 weeks, how often have you been bothered by any of the following problems? 1. Little interest or pleasure in doing things: not at all 2. Feeling down, depressed, or hopeless: not at all 3. Trouble falling or staying asleep, or sleeping too much: not at all 4. Feeling tired or having little energy: not at all 5. Poor appetite or overeating: not at all 6. Feeling bad about yourself - or that you are a failure or have let yourself or your family down: not at all 7. Trouble concentrating on things, such as reading the newspaper or watching television: not at all 8. Moving or speaking so slowly that other people could have noticed. Or the opposite - being so fidgety or restless that you have been moving around a lot more than usual: not at all 9. Thoughts that you would be better off or of hurting yourself in some way: not at all Total score: 0 Depression Screening Interpretation: Negative Depression Screening Done: Yes 50522 - PHQ-9 Billing: Yes Source: Developed by Drs. Yeyo Wright, Samira Srivastava, Ernie Mcdonald and colleagues, with an educational monica from [employer]. Thrive Questionnaire Date Thrive assessed: 11/16/23 I am a: Patient What is your living situation today?: I have a steady place to live Within the past 12 months, did the food you bought not last and you didn't have the money to get more?: Never true Within the past 12 months, did you worry whether your food would run out before you got money to buy more?: Never true Do you have trouble paying for medicines?: No Do you have trouble getting transportation to medical appointments?: No Do you have trouble paying your heating and electricity bill?: No Do you have trouble taking care of your child, family member or friend?: No Do you have trouble with day-to-day activities such as bathing, preparing meals, shopping, managing finances, etc.?: No Are you currently unemployed and looking for a job?: No Are you interested in more education?: No Please select the resources that you would like help with: None THRIVE Score: 0 AUDIT C Alcohol Use Questionnaire (AUDIT-C) 1. How often do you have a drink containing alcohol?: Never Total Score: 0 Score Reviewed/Action Taken: Yes SOFIA-7 AMB Questionnaire SOFIA-7 Date SOFIA - 7 assessed: 11/16/23 Feeling nervous, anxious, or on edge: 0 = Not at all Not being able to stop or control worryin = Not at all Worrying too much about different things: 0 = Not at all Trouble relaxin = Not at all Being so restless that it is hard to sit still: 0 = Not at all Becoming easily annoyed or irritable: 0 = Not at all Feeling afraid as if something awful might happen: 0 = Not at all Total SOFIA-7 score (0-4 normal; 5-9 mild; 10-14 moderate; 15-21 severe): 0 Source: Developed by Drs. Yeyo Wright, Samira Srivastava, Ernie Mcdonald and colleagues, with an educational monica from [employer]. Review of Systems Const Denies chills, Denies headache(s) and Denies weight loss ENT Denies headache(s) Card Denies chest pain, Denies syncope, Denies irregular heart rhythm and Denies dyspnea Resp Denies chest congestion, Denies cough and Denies dyspnea GI Denies abdominal pain, Denies change in stool character, Denies nausea and Denies vomiting Musc Denies deformity and Denies joint swelling Neuro Denies syncope and Denies headache(s) Physical exam (Primary Care) Vital Signs: Last Vital Signs Pulse 64 11/16/23 08:43 BP 142/70 H 11/16/23 08:43 Pulse Ox 89 L 11/16/23 08:43 Oxygen Delivery Method Room Air 11/16/23 08:43 Tobacco/Smoking Status: Tobacco use Status Tobacco use date assessed 11/16/23 11/16/23 08:44 Patient Tobacco Use Status Former Tobacco user 11/16/23 08:44 Tobacco use type Cigarette 11/16/23 08:44 e-Cigarette/Vaping Use Never Used 11/16/23 08:44 PHQ-9: PHQ-9 Score PHQ-9: Total score 0 11/16/23 08:44 Depression Screening Interpretation: Negative Thrive Assessment: Date of Thrive Assessment Date Thrive assessed 11/16/23 11/16/23 08:44 Const General: cooperative, comfortable, no acute distress and alert Neck Neck: Yes no lymphadenopathy Thyroid: Thyroid normal Resp Effort & Inspection: normal respiratory effort Auscultation: clear to auscultation bilaterally Percussion: percussion normal Cardio Jugular venous distension: no JVD Palpation: normal PMI Rate: regular rate Rhythm: regular rhythm Heart sounds: S1 normal heart sound present and S2 normal heart sound present GI Inspection: Yes normal to inspection Palpation (GI): No hepatosplenomegaly present Skin General skin exam: no rashes or lesions noted Extrem General: Yes no clubbing, cyanosis or edema Assessment and Plan Assessment & Plan (1) COPD (chronic obstructive pulmonary disease): Code(s): J44.9 - Chronic obstructive pulmonary disease, unspecified Plan: stable; same rx (2) Hyperlipidemia: Code(s): E78.5 - Hyperlipidemia, unspecified Plan: stable; check labs (3) Hypertension: Code(s): I10 - Essential (primary) hypertension Plan: stable; sane rx Orders: Orders XR DEXA axial skeleton Today M85.80 - Other specified disorders of bone density and structure, unspecified site Lipid Panel Today E78.5 - Hyperlipidemia, unspecified Complete Blood Count Auto Diff Today D64.9 - Anemia, unspecified Comprehensive [place]. Panel Fast Today N28.9 - Disorder of kidney and ureter, unspecified Medications: Refilled fluticasone propion-salmeterol 250-50 mcg/dose (Wixela Inhub) 1 inh inhalation BID 180 ea 3RF Coding Level of Care Code Est Pt Level 4 (23400) Diagnoses COPD (chronic obstructive pulmonary disease) J44.9 Hyperlipidemia E78.5 Hypertension I10
== END 2023-11-16 09:00 | disposition home or self-care (01) ==
PROVIDERS: PCP Internal Medicine; Visit Provider Internal Medicine
DX: J44.9 Chronic obstructive pulmonary disease, unspecified (principal); E78.5 Hyperlipidemia, unspecified; I10 Essential (primary) hypertension
CPT/HCPCS: 99214

== ENCOUNTER 2023-11-28 08:41 | Outpatient (REF) | payer MEDICARE, SELFPAY ==
--- NOTE | ~2023-11-28 | MM_ITS ---
EXAMINATION: BONE DENSITOMETRY CLINICAL INDICATION: Other specified disorders of bone density and structure, unspecified. COMPARISON: Baseline BD dated 10/17/2011. TECHNIQUE: Using a [employer] DXA System (software version: 13.1) manufactured by [employer], dual-energy x-ray absorptiometry was performed of the lumbar spine and left hip. The images are of good technical quality. Summary results are attached. FINDINGS: LEFT FEMUR, NECK: Current: BMD 0.613 g/cm2, Z-score -0.7, T-score -3.1, osteoporosis. Baseline: BMD 0.648 g/cm2. LEFT FEMUR, TOTAL: Current: BMD 0.568 g/cm2, Z-score -1.3, T-score -3.5, osteoporosis, 14.7% decrease from baseline (<5% change is not significant). Baseline: BMD 0.666 g/cm2. AP SPINE L1-L4: Current: BMD 0.885 g/cm2, Z-score -0.5, T-score -2.5, osteoporosis, 14.3% decrease from baseline (<5% change is not significant). Baseline: BMD 1.033 g/cm2. IDENTIFIED RISK FACTORS: Menopause, parental hip fracture, history of fracture (adult). HISTORY OF FRACTURE: Hip, spine, wrist. MEDICATIONS: Vitamin D. MM/XR DEXA axial skeleton IMPRESSION: 1. DIAGNOSIS: Severe osteoporosis based on the lowest T-score value of -3.5 in the femoral neck and history of fracture applying World Health Organization criteria. 2. 10-YEAR FRACTURE RISK PREDICTION, FRAX: According to the guidelines, FRAX calculation should only be performed on patients in the osteopenia bone density category. Therefore, FRAX was not performed on this patient. 3. Treatment Recommendations: NOF guidelines recommend consideration for treatment in postmenopausal women and men age 50 and older presenting with the following: -A hip or vertebral (clinical or morphometric) fracture. -T-score less than or equal to -2.5 at the femoral neck or spine after appropriate evaluation to exclude secondary causes. -Low bone mass at the hip or spine and a 10-year fracture probability by FRAX of greater than or equal to 3% for hip fracture or greater than or equal to 20% for major osteoporotic fracture based on the [place] adapted WHO algorithm. 4. Other Recommendations: All treatment decisions require clinical judgment and consideration of individual patient factors, including patient preferences, comorbidities, previous drug use, risk factors not captured in the FRAX model (e.g. frailty, falls, vitamin D deficiency, increased bone turnover, interval significant decline in bone density) and possible under or overestimation of fracture risk by FRAX. Additional medical evaluation for secondary cause of low bone mineral density may be appropriate. FUTURE SCAN RECOMMENDATION: People with diagnosed cases of osteoporosis or at high risk for fracture should have regular bone mineral density tests. For patients eligible for Medicare, routine testing is allowed once every 2 years. The testing frequency can be increased to one year for patients who have rapidly progressing disease, those who are receiving or discontinuing medical therapy to restore bone mass, or have additional risk factors.
== END 2023-11-28 08:42 | disposition home or self-care (01) ==
LOC: HO.MAMMO 08:41
PROVIDERS: PCP Internal Medicine; Visit Provider Internal Medicine
DX: Z13.820 Encounter for screening for osteoporosis (principal); Z78.0 Asymptomatic menopausal state; M85.80 Other specified disorders of bone density and structure, unspecified site
CPT/HCPCS: 77080

== ENCOUNTER 2024-03-26 10:42 | Outpatient (AMB) | payer MEDICARE, SELFPAY ==
[2024-03-26 10:49] VITALS: BP 138/62; PULSE 62; O2SAT 90; BMI 24.0
--- NOTE | 2024-03-26 10:49 | A.OFFPC_ITS ---
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 Accompanied by: Self / Same As Patient Allergies sulfamethoxazole [From BACTRIM] Allergy (Unknown, Verified 03/26/24 10:50) RASH trimethoprim [From BACTRIM] Allergy (Unknown, Verified 03/26/24 10:50) RASH Medication List - Last Reconciled 03/27/24 by Liam Lloyd MD albuterol sulfate 90 mcg/actuation 2 puffs inhalation Q4-6H PRN amlodipine 5 mg PO DAILY fluticasone propion-salmeterol 250-50 mcg/dose (Wixela Inhub) 1 inh inhalation BID fluticasone propion-salmeterol 45-21 mcg/actuation (Advair HFA) 2 puffs inhalation BID ipratropium bromide 17 mcg/actuation (Atrovent HFA) 2 inhalations PO QID lidocaine 5% 1 patch topical DAILY PRN metoprolol tartrate 50 mg PO DAILY morphine 15 mg PO Q6H PRN 5 days simvastatin 20 mg PO DAILY triamterene-hydrochlorothiazid 37.5-25 mg 1 cap PO QAM Tobacco use date assessed: 11/16/23 Fall risk assessment: No Falls in past year Last assessed Fall Risk: 03/26/24 Dental Screening Dental Screen Date: 11/16/23 HPI 3 month f/u HPI Details COPD on rx and 02; stable and doing well PFSH Medical History COPD (chronic obstructive pulmonary disease) Hyperlipidemia Hypertension On beta messi at home On home O2 Surgical History History of cataract extraction History of surgery on arm History of hip surgery Family History Father Medical history unknown Mother Medical history unknown Brother No problems noted. Brother No problems noted. Son No problems noted. Son No problems noted. Daughter No problems noted. Social History (Reviewed 03/19/23 @ 08:31 by Alyson Perla Housing: House Are you a primary multi care technician to a significant other at home: No Do you presently have visiting nurse or other home services: No Alcohol intake: never Patient Tobacco Use Status: Former Tobacco user Tobacco use type: Cigarette e-Cigarette/Vaping Use: Never Used Second Hand Smoke Exposure: No service: No Current occupational status: retired Current occupational exposures/hazards: No Cognitive needs: Yes Hearing needs: No Vision needs: No Questionnaire Thrive Questionnaire Date Thrive assessed: 11/16/23 SOFIA-7 AMB Questionnaire SOFIA-7 Date SOFIA - 7 assessed: 11/16/23 Source: Developed by Drs. Yeyo Wright, Samira Srivastava, Ernie Mcdonald and colleagues, with an educational monica from [employer]. Review of Systems Const Denies chills, Denies headache(s) and Denies weight loss ENT Denies headache(s) Card Denies chest pain, Denies syncope, Denies irregular heart rhythm and Denies dyspnea Resp Denies chest congestion, Denies cough and Denies dyspnea GI Denies abdominal pain, Denies change in stool character, Denies nausea and Denies vomiting Musc Denies deformity and Denies joint swelling Neuro Denies syncope and Denies headache(s) Physical exam (Primary Care) Vital Signs: Last Vital Signs Pulse 62 03/26/24 10:49 BP 138/62 03/26/24 10:49 Pulse Ox 90 L 03/26/24 10:49 Oxygen Delivery Method Room Air 03/26/24 10:49 BMI result Body Mass Index 24.0 Tobacco/Smoking Status: Tobacco use Status Tobacco use date assessed 11/16/23 03/26/24 10:54 Patient Tobacco Use Status Former Tobacco user 03/26/24 10:54 Tobacco use type Cigarette 03/26/24 10:54 e-Cigarette/Vaping Use Never Used 03/26/24 10:54 Thrive Assessment: Date of Thrive Assessment Date Thrive assessed 11/16/23 03/26/24 10:54 Const General: cooperative, comfortable, no acute distress and alert Neck Neck: Yes no lymphadenopathy Thyroid: Thyroid normal Resp Effort & Inspection: normal respiratory effort Auscultation: clear to auscultation bilaterally Percussion: percussion normal Cardio Jugular venous distension: no JVD Palpation: normal PMI Rate: regular rate Rhythm: regular rhythm Heart sounds: S1 normal heart sound present and S2 normal heart sound present GI Inspection: Yes normal to inspection Palpation (GI): No hepatosplenomegaly present Skin General skin exam: no rashes or lesions noted Extrem General: Yes no clubbing, cyanosis or edema Assessment and Plan Assessment & Plan (1) COPD (chronic obstructive pulmonary disease): Code(s): J44.9 - Chronic obstructive pulmonary disease, unspecified Plan: stable; same rx Medications: Refilled albuterol sulfate 90 mcg/actuation 2 puffs inhalation Q4-6H PRN 8.5 grams 8RF shortness of breath or wheezing Coding Level of Care Code Est Pt Level 3 (93971) Diagnoses COPD (chronic obstructive pulmonary disease) J44.9
== END 2024-03-26 11:03 | disposition home or self-care (01) ==
PROVIDERS: PCP Internal Medicine; Visit Provider Internal Medicine
DX: J44.9 Chronic obstructive pulmonary disease, unspecified (principal)
CPT/HCPCS: 99213

== ENCOUNTER 2024-06-27 09:17 | Outpatient (AMB) | payer MEDICARE, SELFPAY ==
[2024-06-27 09:18] VITALS: BP 158/82; PULSE 57; O2SAT 94; BMI 24.5
--- NOTE | 2024-06-27 09:18 | MHC.PC.OV ---
Vital Signs 06/27/24 09:18 Height 5 ft 4 in Weight 143 lb BMI 24.5 BP 158/82 H Blood Pressure Location Lt brachial Position Sitting Pulse 57 Pulse Source Pulse Oximeter Pulse Oximetry (%) 94 Oxygen Delivery Method Nasal Cannula Oxygen Flow Rate 3 Intake Visit Reasons: 3 Month F/U Chief Executive Required: No Accompanied by: Self / Same As Patient Allergies sulfamethoxazole [From BACTRIM] Allergy (Unknown, Verified 06/27/24 09:21) RASH trimethoprim [From BACTRIM] Allergy (Unknown, Verified 06/27/24 09:21) RASH Medication List - Last Reconciled 06/27/24 by Liam Lloyd MD albuterol sulfate 90 mcg/actuation 2 puffs inhalation Q4-6H PRN amlodipine 5 mg PO DAILY fluticasone propion-salmeterol 250-50 mcg/dose (Wixela Inhub) 1 inh inhalation BID fluticasone propion-salmeterol 45-21 mcg/actuation (Advair HFA) 2 puffs inhalation BID ipratropium bromide 17 mcg/actuation (Atrovent HFA) 2 inhalations PO QID lidocaine 5% 1 patch topical DAILY PRN metoprolol tartrate 50 mg PO DAILY morphine 15 mg PO Q6H PRN 5 days simvastatin 20 mg PO DAILY triamterene-hydrochlorothiazid 37.5-25 mg 1 cap PO QAM Tobacco use date assessed: 11/16/23 Fall risk assessment: No Falls in past year Last assessed Fall Risk: 06/27/24 Dental Screening Dental Screen Date: 11/16/23 HPI 3 Month F/U HPI Details HTN on Rx; doing well; compliant [facility] Medical History COPD (chronic obstructive pulmonary disease) Hyperlipidemia Hypertension On beta messi at home On home O2 Surgical History History of cataract extraction History of surgery on arm History of hip surgery Family History Father Medical history unknown Mother Medical history unknown Brother No problems noted. Brother No problems noted. Son No problems noted. Son No problems noted. Daughter No problems noted. Social History Housing: House Are you a primary date night caregiver to a significant other at home: No Do you presently have visiting nurse or other home services: No Alcohol intake: never Patient Tobacco Use Status: Former Tobacco user Tobacco use type: Cigarette e-Cigarette/Vaping Use: Never Used Second Hand Smoke Exposure: No service: No Current occupational status: retired Current occupational exposures/hazards: No Cognitive needs: Yes Hearing needs: No Vision needs: No Questionnaire Thrive Questionnaire Date Thrive assessed: 11/16/23 SOFIA-7 AMB Questionnaire SOFIA-7 Date SOFIA - 7 assessed: 11/16/23 Source: Developed by Drs. Yeyo Wright, Samira Srivastava, Ernie Mcdonald and colleagues, with an educational monica from [employer]. Review of Systems Const Denies chills, Denies headache(s) and Denies weight loss ENT Denies headache(s) Card Denies chest pain, Denies syncope, Denies irregular heart rhythm and Denies dyspnea Resp Denies chest congestion, Denies cough and Denies dyspnea GI Denies abdominal pain, Denies change in stool character, Denies nausea and Denies vomiting Musc Denies deformity and Denies joint swelling Neuro Denies syncope and Denies headache(s) Physical exam (Primary Care) Vital Signs: Last Vital Signs Pulse 57 06/27/24 09:18 BP 158/82 H 06/27/24 09:18 Pulse Ox 94 06/27/24 09:18 Oxygen Delivery Method Nasal Cannula 06/27/24 09:18 Oxygen Flow Rate 3 06/27/24 09:18 BMI result Body Mass Index 24.5 Tobacco/Smoking Status: Tobacco use Status Tobacco use date assessed 11/16/23 06/27/24 09:25 Patient Tobacco Use Status Former Tobacco user 06/27/24 09:25 Tobacco use type Cigarette 06/27/24 09:25 e-Cigarette/Vaping Use Never Used 06/27/24 09:25 Thrive Assessment: Date of Thrive Assessment Date Thrive assessed 11/16/23 06/27/24 09:25 Const General: cooperative, comfortable, no acute distress and alert Neck Neck: Yes no lymphadenopathy Thyroid: Thyroid normal Resp Effort & Inspection: normal respiratory effort Auscultation: clear to auscultation bilaterally Percussion: percussion normal Cardio Jugular venous distension: no JVD Palpation: normal PMI Rate: regular rate Rhythm: regular rhythm Heart sounds: S1 normal heart sound present and S2 normal heart sound present GI Inspection: Yes normal to inspection Palpation (GI): No hepatosplenomegaly present Skin General skin exam: no rashes or lesions noted Extrem General: Yes no clubbing, cyanosis or edema Assessment and Plan Assessment & Plan (1) Hypertension: Code(s): I10 - Essential (primary) hypertension Plan: stable; same rx Orders: Orders Complete Blood Count Auto Diff Today Z13.0 - Encounter for screening for diseases of the blood and blood-forming organs and certain disorders involving the immune mechanism Lipid Panel Today Z13.220 - Encounter for screening for lipoid disorders Comprehensive [place]. Panel Fast Today Z13.9 - Encounter for screening, unspecified Thyroid Stimulating Hormone Today Z13.29 - Encounter for screening for other suspected endocrine disorder Coding Level of Care Code Est Pt Level 3 (15453) Diagnoses Hypertension I10
== END 2024-06-27 09:35 | disposition home or self-care (01) ==
PROVIDERS: PCP Internal Medicine; Visit Provider Internal Medicine
DX: I10 Essential (primary) hypertension (principal)

== ENCOUNTER → 2024-06-27 09:17 | Outpatient (BNVA) | payer MEDICARE, SELFPAY | PROVIDERS: PCP Internal Medicine; Visit Provider Internal Medicine | DX: I10 Essential (primary) hypertension (principal) | CPT/HCPCS: 99212 ==

== ENCOUNTER 2024-09-12 14:57 | Emergency (ER) | payer MEDICARE, SELFPAY ==
[2024-09-12 15:21] VITALS: BP 169/57; PULSE 69; RESP 19; TEMP 36.6; O2SAT 94; BMI 23.8
--- NOTE | 2024-09-12 15:21 | ED.GENADULT ---
HPI - General Adult General Chief complaint: Abdominal Pain Stated complaint: abd pain Time Seen by Provider: 09/12/24 18:21 Source: patient Limitations: no limitations History of Present Illness ED Provider: Aileen Ceron NP HPI narrative: Patient is an 83-year-old female who presents emergency department with her daughter for evaluation. She reports that she has been experiencing intermittent lower abdominal pain for approximately 1 week. Denies having the pain at this time, but she does state that at times with certain movements it feels worse. Occasionally radiates towards the back. She denies any precipitating injury or falls. Denies any associated chest pain or shortness of breath outside of her baseline (COPD on chronic oxygen supplementation). Denies fevers, chills, chest pain, nausea, vomiting, hematemesis, diarrhea, constipation, hematochezia, melena, dysuria, urinary frequency, urinary urgency, urinary hesitancy, hematuria. Denies pelvic pain or abnormal vaginal discharge/bleeding. Related Data Previous Rx's ?Medication ?Instructions ?Recorded lidocaine 5 % topical patch 1 patch topical DAILY PRN pain #15 08/20/23 ea morphine 15 mg immediate release 15 mg PO Q6H PRN pain 5 days #10 08/20/23 tablet tabs triamterene 37.5 1 cap PO QAM #90 caps 10/17/23 mg-hydrochlorothiazide 25 mg capsule fluticasone propionate 45 2 puff inhalation BID #12 grams 11/02/23 mcg-salmeterol 21 mcg/actuation HFA inhaler (Advair HFA) fluticasone 250 mcg-salmeterol 50 1 inh inhalation BID #180 ea 11/16/23 mcg/dose blistr powdr for inhalation (Wixela Inhub) ipratropium bromide 17 2 inh PO QID #51.6 grams 02/07/24 mcg/actuation HFA aerosol inhaler (Atrovent HFA) albuterol sulfate 90 mcg/actuation 2 puff inhalation Q4-6H PRN 03/26/24 aerosol inhaler shortness of breath or wheezing #8.5 grams amlodipine 5 mg tablet 5 mg PO DAILY #90 tabs 07/10/24 metoprolol tartrate 50 mg tablet 50 mg PO DAILY #90 tabs 07/10/24 simvastatin 20 mg tablet 20 mg PO DAILY #90 tabs 07/10/24 cefpodoxime 200 mg tablet 200 mg PO BID #20 tabs 09/12/24 Allergies Allergy/AdvReac Type Severity Reaction Status Date / Time sulfamethoxazole Allergy Unknown RASH Verified 09/12/24 15:24 [From BACTRIM] trimethoprim [From BACTRIM] Allergy Unknown RASH Verified 09/12/24 15:24 Review of Systems Review of Systems: Yes all other systems are reviewed and are negative [facility] Past Medical History Attestation statement: The following information was validated with the patient. Source: old records reviewed Medical History On home O2 COPD (chronic obstructive pulmonary disease) On beta messi at home Hyperlipidemia Hypertension Surgical History History of cataract extraction History of surgery on arm History of hip surgery Family History Family History Father Medical history unknown Mother Medical history unknown Brother No problems noted. Brother No problems noted. Son No problems noted. Son No problems noted. Daughter No problems noted. Social History Social History Housing: House Are you a primary day care center director to a significant other at home: No Do you presently have visiting nurse or other home services: No Alcohol intake: never Patient Tobacco Use Status: Former Tobacco user Tobacco use type: Cigarette e-Cigarette/Vaping Use: Never Used Second Hand Smoke Exposure: No Advance Directives: No Advance Directives Information Provided: No Do you have a plan to hurt others: No Plan service: No Current occupational status: retired Current occupational exposures/hazards: No Cognitive needs: Yes Hearing needs: No Vision needs: No Physical Exam ED Vital Signs: Vital Signs - 24 hr 09/12/24 15:21 Temperature 98 F Pulse Rate 69 Respiratory Rate 19 Blood Pressure 169/57 H Pulse Oximetry 94 Oxygen Delivery Method Room Air BMI result Body Mass Index 23.8 Appearance: Alert.?Oriented to person, place and time. No acute distress.?Normal affect.?? Neck: Normal inspection.? Neck supple.?? CVS: Heart sounds normal. Normal heart rate and rhythm.? Pulses normal.?? Respiratory: No respiratory distress.? Lung sounds clear to auscultation bilaterally?? Abdomen: Soft with mild suprapubic tenderness upon palpation No rebound tenderness at McBurney's point. Negative psoas sign. Negative Rovsing sign. Negative Mcmullen sign. No CVAT. Normoactive bowel sounds. No pulsatile mass.?? Skin: Skin warm and dry.? Normal skin color.? Extremities: No lower extremity edema.? Neuro: Moves all extremities spontaneously. Sensation intact bilaterally. Ambulates with normal steady gait. Course Course Course Narrative: RME, this is a rapid medical exam performed by Andi Hodge please refer to primary provider for complete H&P- 83-year-old female with past medical history significant for COPD presents for evaluation of abdominal pain. She reports lower abdominal pain for the last week. Denies associated symptoms including nausea, vomiting, diarrhea. Her last bowel movement was this morning and was normal for her. Denies any urinary complaints. Her oxygen saturation in triage he was 93/94%. She typically does wear 2 L via nasal cannula at home but did not bring it. She denies shortness of breath. Plan for labs, urinalysis will defer any imaging to primary ER provider Medical Decision Making Medical Decision Making MDM Narrative: Patient is an 83-year-old female who presents emergency department for evaluation of lower abdominal pain over the past week as per HPI without additional attributing symptoms. On evaluation, she has mild tenderness upon palpation over the suprapubic region otherwise abdominal examination is benign. She is without signs of systemic toxicity found to be afebrile without tachycardia, no hypotension. Examination not consistent with acute abdomen, no peritoneal signs; no tenderness upon light palpation, no rebound tenderness, no guarding, no percussive tenderness. Urinalysis concerning for urinary tract infection, given the intermittent pain to the low back bilaterally, will treat with cephalexin to cover possible early pyelonephritis. Although on review of her labs, CBC is without leukocytosis, anemia or thrombocytopenia, no electrolyte derangement, no SHARAD, LFTs lipase are within normal range. Differential Diagnosis Differential Diagnoses: The differential diagnosis associated with the presentation includes (See narrative above) No associated chest pain shortness of breath or URI symptoms to suggest pneumonia, no clinical evidence of DVT or personal history of VTE/malignancy to suggest pulmonary embolism. No abdominal tenderness upon palpation, negative Mcmullen sign, unlikely acute cholecystitis, choledocholithiasis, no fever or jaundice to suggest acute cholangitis, may possibly be biliary colic secondary to cholelithiasis. Denies associated acid reflux, no tenderness upon palpation over the epigastrium or left upper quadrant to suggest gastritis, no recent hematemesis history less likely to suggest PUD. Denies excessive alcohol consumption, history of diabetes, lower suspicion acute pancreatitis. No rebound tenderness at McBurney's point, rigidity, guarding to suggest acute appendicitis. No tenderness of the left lower quadrant nor associated nausea, vomiting, diarrhea, constipation, hematochezia or melena to suggest diverticulitis or GI bleed. No appreciable hernia to suggest strangulation/incarceration. Lower suspicion for bowel obstruction. No distention or rigidity to suggest GI perforation. Admission/Observation Consideration of admission/observation: Escalation of care including admission/observation considered (See narrative above ) Lab Data MDM Lab Attestation statement: I reviewed the patient's lab results. (See narrative above) 09/12/24 17:13 09/12/24 17:13 Labs: Lab Results 09/12/24 Range/Units 17:13 WBC 8.5 (4.8-10.8) X10*3/uL RBC 4.51 (4.20-5.50) X10*6/uL Hgb 13.6 (12.0-16.0) g/dl Hct 39.9 (37.0-47.0) % MCV 88.5 (80.0-98.0) fL MCH 30.2 (27.0-33.0) pg MCHC 34.1 (31.0-35.0) g/dl RDW 12.1 (11.0-16.0) % Plt Count 208 (160-400) X10*3/uL MPV 10.7 (9.4-12.3) fL Immature Gran % (Auto) 0.6 H (0.0-0.4) % Neut % (Auto) 73.9 H (45-73) % Lymph % (Auto) 14.3 L (20-40) % Josephine % (Auto) 7.3 (2-11) % Eos % (Auto) 3.1 (0-4) % Baso % (Auto) 0.8 (0-2) % Lymph # (Auto) 1.2 (1.2-4.9) X10*3/uL Josephine # (Auto) 0.6 (0.1-1.2) X10*3/uL Eos # (Auto) 0.3 (0.0-0.4) X10*3/uL Baso # (Auto) 0.1 (0.0-0.2) X10*3/uL Abs Immat Gran (auto) 0.05 H (0.00-0.03) X10*3/uL Absolute Neuts (auto) 6.3 (2.0-8.3) x10*3/uL Absolute Nucleated RBC 0.000 (0.0-0.012) X10*3/uL Nucleated RBC % (auto) 0.0 (0.0-0.2) /100WBC Sodium 143 (135-145) mmol/L Potassium 4.3 (3.3-5.1) mmol/L Chloride 109 H (96-108) mmol/L Carbon Dioxide 25 (22-29) mmol/L Anion Gap 13 (12-20) BUN 30 H (9-16) mg/dL Creatinine 0.97 (0.5-1.4) mg/dL Estim Creat Clear Calc 39.5 Estimated GFR 55 Random Glucose 82 (60-115) mg/dL Calcium 10.5 H D (8.4-10.2) mg/dL Total Bilirubin 0.4 (0.0-1.0) mg/dL AST 22 (5-31) U/L ALT 9 (0-31) U/L Alkaline Phosphatase 81 (39-117) U/L Total Protein 7.0 (6.5-8.0) g/dL Albumin 4.0 (3.5-5.0) g/dL Lipase 42 (8-78) U/L Urine Color Yellow Urine Appearance Cloudy Urine pH 5.5 (5.0-9.0) Ur Specific [place] 1.020 (1.005-1.025) Urine Protein Trace (Neg-Trace) mg/dL Urine Glucose (UA) Negative (Negative) mg/dL Urine Ketones Negative (Negative) mg/dL Urine Blood Negative (Negative) Urine Nitrite Negative (Negative) Ur Leukocyte Esterase Trace H (Negative) Urine RBC 0-2 (0-2) /HPF Urine WBC 6-10 H (0-5) /HPF Ur Squamous Epith Cells 11-20 (0-2) /HPF Urine Bacteria 4+ (None Seen) Hyaline Casts 0-2 (0-2) /LPF Independent Historian Clinical information obtained from an independent historian. History obtained from or confirmed by: Other (Daughter) External Record Review External record reviewed: Outpatient record Prescription Management I considered prescription management with: Antibiotic Discharge Plan Discharge Clinical Impression: Urinary tract infection Patient Disposition: Home, Self-Care Instructions: Urinary Tract Infection in Older Adults (ED) Prescriptions: New cefpodoxime 200 mg tablet 200 mg PO BID Qty: 20 0RF Rx Instructions: must administer with a meal/food No Action triamterene-hydrochlorothiazid 37.5-25 mg capsule 1 cap PO QAM Qty: 90 8RF fluticasone propion-salmeterol [Advair HFA] 45-21 mcg/actuation HFA aerosol inhaler 2 puff inhalation BID Qty: 12 0RF Rx Instructions: administer with spacer Atrovent HFA 17 mcg/actuation HFA aerosol inhaler 2 inh PO QID Qty: 51.6 3RF simvastatin 20 mg tablet 20 mg PO DAILY Qty: 90 3RF amlodipine 5 mg tablet 5 mg PO DAILY Qty: 90 3RF metoprolol tartrate 50 mg tablet 50 mg PO DAILY Qty: 90 3RF lidocaine 5 % adhesive patch,medicated 1 patch topical DAILY PRN (Reason: pain) Qty: 15 0RF Rx Instructions: leave on most painful area for up to 12 hrs morphine 15 mg tablet 15 mg PO Q6H PRN (Reason: pain) 5 Days Qty: 10 0RF Rx Instructions: Partial Fill upon patient request. fluticasone propion-salmeterol [Wixela Inhub] 250-50 mcg/dose blister with device 1 inh inhalation BID Qty: 180 3RF albuterol sulfate 90 mcg/actuation HFA aerosol inhaler 2 puff inhalation Q4-6H PRN (Reason: shortness of breath or wheezing) Qty: 8.5 8RF Referrals: Liam Lloyd MD [Primary Care Provider] - Print Language: Colombian
[2024-09-12 17:18] LABS: MANUAL DIFF FLAG NO
[2024-09-12 17:24] LABS: Appearance Urine Cloudy; Color Urine Yellow; Glucose Urine UA Negative (Negative); Leukocyte Esterase Urine Trace (Negative); Nitrite Urine Negative (Negative); PH 5.5 (5.0-9.0); UMIC TRIGGER UACC YES; Urine Blood Negative (Negative); Urine Ketones Negative (Negative); Urine Protein Trace mg/dL (Neg-Trace)
[2024-09-12 17:26] LABS: Basophils Absolute Auto 0.1 X10*3/uL (0.0-0.2); Basophils Percent Auto 0.8 % (0-2); Eosinophils Absolute Auto 0.3 X10*3/uL (0.0-0.4); Eosinophils Percent Auto 3.1 % (0-4); Hematocrit 39.9 % (37.0-47.0); Hemoglobin 13.6 g/dl (12.0-16.0); Imm Gran Abs Auto 0.05 X10*3/uL (0.00-0.03); Imm Gran Pct Auto 0.6 % (0.0-0.4); Lymphocytes Absolute Auto 1.2 X10*3/uL (1.2-4.9); Lymphocytes Percent Auto 14.3 % (20-40); Mean Corpuscular HGB Conc 34.1 g/dl (31.0-35.0); Mean Corpuscular Hemoglobin 30.2 pg (27.0-33.0); Mean Corpuscular Volume 88.5 fL (80.0-98.0); Mean Platelet Volume 10.7 fL (9.4-12.3); Monocytes Absolute Auto 0.6 X10*3/uL (0.1-1.2); Monocytes Percent Auto 7.3 % (2-11); Neutrophils Absolute Auto 6.3 x10*3/uL (2.0-8.3); Neutrophils Percent Auto 73.9 % (45-73); Platelet Count 208 X10*3/uL (160-400); Red Blood Count 4.51 X10*6/uL (4.20-5.50); Red Cell Distribution Width 12.1 % (11.0-16.0); White Blood Count 8.5 X10*3/uL (4.8-10.8)
[2024-09-12 17:27] LABS: Bacteria Urine 4+ (None Seen); Hyaline Casts Urine 0-2 /LPF (0-2); RBC Urine 0-2 /HPF (0-2); UACC Culture Trigger YES
[2024-09-12 17:36] LABS: Alanine Aminotransferase 9 U/L (0-31); Alkaline Phosphatase 81 U/L (39-117); Anion Gap 13 (12-20); Aspartate Amino Transferase 22 U/L (5-31); Bilirubin Total 0.4 mg/dL (0.0-1.0); Blood Urea Nitrogen 30 mg/dL (9-16); Calcium 10.5 mg/dL (8.4-10.2); Carbon Dioxide 25 mmol/L (22-29); Chloride 109 mmol/L (96-108); Creatinine Clr Calc Pharmacy 39.5; Estimated Glomerular Filt Rate 55; Glucose Random 82 mg/dL (60-115); Lipase 42 U/L (8-78); Potassium 4.3 mmol/L (3.3-5.1); Sodium 143 mmol/L (135-145)
[2024-09-12 19:13] VITALS: BP 154/79; PULSE 74; RESP 18; TEMP 36.6; O2SAT 97
== END 2024-09-12 19:18 | disposition home or self-care (01) ==
PROVIDERS: Physician Assistant; Emergency Provider Emergency Medicine; PCP Internal Medicine
DX: N39.0 Urinary tract infection, site not specified (principal); R10.30 Lower abdominal pain, unspecified; I10 Essential (primary) hypertension; E78.5 Hyperlipidemia, unspecified; J44.9 Chronic obstructive pulmonary disease, unspecified; Z99.81 Dependence on supplemental oxygen; Z79.899 Other long term (current) drug therapy
CPT/HCPCS: 36415; 80053; 81001; 83690; 85025; 87086; 87088; 87186; 99282; 99283

== ENCOUNTER 2024-09-18 09:38 | Outpatient (AMB) | payer MEDICARE, SELFPAY ==
--- NOTE | 2024-09-18 09:41 | A.OFFPC_ITS ---
Vital Signs 09/18/24 09:43 BP 160/96 H Blood Pressure Location Rt brachial Position Sitting Respiration 15 Pulse 65 Pulse Source Pulse Oximeter Pulse Oximetry (%) 92 Oxygen Delivery Method Room Air Intake Visit Reasons: Pain on neck Intake Note: Patient is presenting with pain in the mid-abdominal region. Ways Operator Required: No Allergies sulfamethoxazole [From BACTRIM] Allergy (Unknown, Verified 09/12/24 15:24) RASH trimethoprim [From BACTRIM] Allergy (Unknown, Verified 09/12/24 15:24) RASH Tobacco use date assessed: 11/16/23 Dental Screening Dental Screen Date: 11/16/23 HPI Pain on neck HPI Details upper abd pain for a few weeks; treated for a UTI [facility] Medical History On home O2 COPD (chronic obstructive pulmonary disease) On beta messi at home Hyperlipidemia Hypertension Surgical History History of cataract extraction History of surgery on arm History of hip surgery Family History Father Medical history unknown Mother Medical history unknown Brother No problems noted. Brother No problems noted. Son No problems noted. Son No problems noted. Daughter No problems noted. Social History Housing: House Are you a primary chronic care nurse to a significant other at home: No Do you presently have visiting nurse or other home services: No Alcohol intake: never Patient Tobacco Use Status: Former Tobacco user Tobacco use type: Cigarette e-Cigarette/Vaping Use: Never Used Second Hand Smoke Exposure: No service: No Current occupational status: retired Current occupational exposures/hazards: No Cognitive needs: Yes Hearing needs: No Vision needs: No Questionnaire PHQ-9 Over the last 2 weeks, how often have you been bothered by any of the following problems? 1. Little interest or pleasure in doing things: not at all 2. Feeling down, depressed, or hopeless: not at all 3. Trouble falling or staying asleep, or sleeping too much: not at all 4. Feeling tired or having little energy: not at all 5. Poor appetite or overeating: not at all 6. Feeling bad about yourself - or that you are a failure or have let yourself or your family down: not at all 7. Trouble concentrating on things, such as reading the newspaper or watching television: not at all 8. Moving or speaking so slowly that other people could have noticed. Or the opposite - being so fidgety or restless that you have been moving around a lot more than usual: not at all 9. Thoughts that you would be better off or of hurting yourself in some way: not at all Total score: 0 Depression Screening Interpretation: Negative Depression Screening Done: Yes 71695 - PHQ-9 Billing: Yes Source: Developed by Drs. Yeyo Wright, Samira Srivastava, Ernie Mcdonald and colleagues, with an educational monica from [employer]. Thrive Questionnaire Date Thrive assessed: 09/18/24 I am a: Patient What is your living situation today?: I have a steady place to live Within the past 12 months, did the food you bought not last and you didn't have the money to get more?: Never true Within the past 12 months, did you worry whether your food would run out before you got money to buy more?: Never true Do you have trouble paying for medicines?: No Do you have trouble getting transportation to medical appointments?: No Do you have trouble paying your heating and electricity bill?: No Do you have trouble taking care of your child, family member or friend?: No Do you have trouble with day-to-day activities such as bathing, preparing meals, shopping, managing finances, etc.?: No Are you currently unemployed and looking for a job?: No Are you interested in more education?: No Please select the resources that you would like help with: None Currently or been in a relationship where the following occur: No concerns reported THRIVE Score: 0 AUDIT C Alcohol Use Questionnaire (AUDIT-C) 1. How often do you have a drink containing alcohol?: Never Total Score: 0 Score Reviewed/Action Taken: Yes SOFIA-7 AMB Questionnaire SOFIA-7 Date SOFIA - 7 assessed: 09/18/24 Feeling nervous, anxious, or on edge: 0 = Not at all Not being able to stop or control worryin = Not at all Worrying too much about different things: 0 = Not at all Trouble relaxin = Not at all Being so restless that it is hard to sit still: 0 = Not at all Becoming easily annoyed or irritable: 0 = Not at all Feeling afraid as if something awful might happen: 0 = Not at all Total SOFIA-7 score (0-4 normal; 5-9 mild; 10-14 moderate; 15-21 severe): 0 Source: Developed by Drs. Yeyo Wright, Samira Srivastava, Ernei Mcdonald and colleagues, with an educational monica from [employer]. SOFIA-7 Assessment Billing SOFIA-7 Assessment Tool: SOFIA-7 Assessment 81968 Review of Systems Const Denies chills, Denies headache(s) and Denies weight loss ENT Denies headache(s) Card Denies chest pain, Denies syncope, Denies irregular heart rhythm and Denies dyspnea Resp Denies chest congestion, Denies cough and Denies dyspnea GI Denies change in stool character, Denies nausea and Denies vomiting Musc Denies deformity and Denies joint swelling Neuro Denies syncope and Denies headache(s) Physical exam (Primary Care) Vital Signs: Last Vital Signs Pulse 65 09/18/24 09:43 Resp 15 09/18/24 09:43 BP 160/96 H 09/18/24 09:43 Pulse Ox 92 09/18/24 09:43 Oxygen Delivery Method Room Air 09/18/24 09:43 Tobacco/Smoking Status: Tobacco use Status Tobacco use date assessed 11/16/23 09/18/24 09:47 Patient Tobacco Use Status Former Tobacco user 09/18/24 09:47 Tobacco use type Cigarette 09/18/24 09:47 e-Cigarette/Vaping Use Never Used 09/18/24 09:47 PHQ-9: PHQ-9 Score PHQ-9: Total score 0 09/18/24 09:47 Depression Screening Interpretation: Negative Thrive Assessment: Date of Thrive Assessment Date Thrive assessed 09/18/24 09/18/24 09:47 Currently or been in a relationship where the following occur: No concerns reported Coding Level of Care Code Est Pt Level 3 (33395) Diagnoses Abdominal pain R10.9 Additional Codes SOFIA-7 Assessment Billing - SOFIA-7 Assessment Tool: SOFIA-7 Assessment 64485 ([id number]) PHQ-9 - 38802 - PHQ-9 Billing: Yes ([id number]) Assessment & Plan Assessment & Plan (1) Abdominal pain: Code(s): R10.9 - Unspecified abdominal pain Category: Medical Plan: labs and US; rx sent Orders: Orders Complete Blood Count Auto Diff Today Z13.0 - Encounter for screening for diseases of the blood and blood-forming organs and certain disorders involving the immune mechanism US abdomen complete Today R10.9 - Unspecified abdominal pain Basic Metabolic Panel Today R10.9 - Unspecified abdominal pain Urine Culture Today N39.0 - Urinary tract infection, site not specified Medications: New dicyclomine 20 mg PO QID 30 tabs 0RF dicyclomine 20 mg PO QID 30 tabs 3RF
[2024-09-18 09:43] VITALS: BP 160/96; PULSE 65; RESP 15; O2SAT 92
== END 2024-09-18 11:13 | disposition home or self-care (01) ==
PROVIDERS: PCP Internal Medicine; Visit Provider Internal Medicine
DX: R10.9 Unspecified abdominal pain (principal)

== ENCOUNTER → 2024-09-18 09:38 | Outpatient (BNVA) | payer MEDICARE, SELFPAY | PROVIDERS: PCP Internal Medicine; Visit Provider Internal Medicine | DX: M54.2 Cervicalgia (principal); R10.9 Unspecified abdominal pain; N39.0 Urinary tract infection, site not specified | CPT/HCPCS: 96127; 99212 ==

== ENCOUNTER 2024-09-22 13:37 | Outpatient (REF) | payer MEDICARE, SELFPAY ==
--- NOTE | ~2024-09-22 | US_ITS ---
EXAMINATION: US ABDOMEN COMPLETE CLINICAL INFORMATION: Abdominal pain. COMPARISON: None available. TECHNIQUE: Real-time imaging of the abdominal viscera. FINDINGS: PANCREAS: Visualized portions are unremarkable. ABDOMINAL AORTA: The proximal, mid, and distal segments are normal in caliber. INFERIOR VENA CAVA: Visualized portions are normal. LIVER: Heterogeneous liver texture combined with nodular surface raising suspicion for liver parenchymal disease liver cirrhosis. No ultrasound evidence of focal liver lesion. No intra or extrahepatic biliary dilatation. There is a cyst in the left lobe 1.7 x 1.3 x 1.7 cm within septation. GALLBLADDER: Sludge in the gallbladder, the gallbladder is distended, no evidence of gallbladder wall thickening, pericholecystic fluid collection or acute cholecystitis. COMMON BILE DUCT: Normal in caliber measuring 1.2 cm in diameter. RIGHT KIDNEY: Renal cortical thinning suggesting chronic medical renal disease.. The kidney measures 8.9 cm in maximum dimension. Cyst in the upper pole 0.4 cm. Echogenic cortex in the right kidney likely nonobstructing stone. LEFT KIDNEY: Renal cortical thinning suggesting chronic medical renal disease. The kidney measures 8 cm in maximum dimension. Cyst in the upper pole 1.8 cm, cyst in the middle pole measure up to 1.1 cm. SPLEEN: The spleen measures 7 cm in maximum dimension. FREE FLUID: None. US/US abdomen complete IMPRESSION: * Heterogeneous liver texture combined with nodular surface raising suspicion for liver parenchymal disease liver cirrhosis. * There is sludge in the gallbladder, no ultrasound evidence of acute cholecystitis. * Bilateral renal cysts and a nonobstructing stone right kidney. * Bilateral renal cortical thinning suggesting chronic medical renal disease. Electronically signed by: Emily Weston MD 09/22/2024 05:42 PM EST
[2024-09-22 16:12] LABS: MANUAL DIFF FLAG NO
[2024-09-22 16:22] LABS: Basophils Absolute Auto 0.1 X10*3/uL (0.0-0.2); Basophils Percent Auto 0.8 % (0-2); Eosinophils Absolute Auto 0.1 X10*3/uL (0.0-0.4); Eosinophils Percent Auto 1.9 % (0-4); Hemoglobin 13.5 g/dl (12.0-16.0); Imm Gran Abs Auto 0.02 X10*3/uL (0.00-0.03); Imm Gran Pct Auto 0.3 % (0.0-0.4); Mean Corpuscular HGB Conc 32.9 g/dl (31.0-35.0); Mean Corpuscular Hemoglobin 29.8 pg (27.0-33.0); Mean Corpuscular Volume 90.5 fL (80.0-98.0); Mean Platelet Volume 11.2 fL (9.4-12.3); Monocytes Absolute Auto 0.6 X10*3/uL (0.1-1.2); Monocytes Percent Auto 7.9 % (2-11); Neutrophils Absolute Auto 5.4 x10*3/uL (2.0-8.3); Neutrophils Percent Auto 75.1 % (45-73); Platelet Count 226 X10*3/uL (160-400); Red Blood Count 4.53 X10*6/uL (4.20-5.50); Red Cell Distribution Width 12.2 % (11.0-16.0); White Blood Count 7.2 X10*3/uL (4.8-10.8)
[2024-09-22 17:56] LABS: Albumin Level 4.1 g/dL (3.5-5.0); Anion Gap 14 (12-20); Aspartate Amino Transferase 27 U/L (5-31); Bilirubin Total 0.5 mg/dL (0.0-1.0); Blood Urea Nitrogen 31 mg/dL (9-16); Calcium 10.7 mg/dL (8.4-10.2); Carbon Dioxide 28 mmol/L (22-29); Chloride 106 mmol/L (96-108); Cholesterol 172 mg/dL (<200); Estimated Glomerular Filt Rate 50; Glucose Fasting 104 mg/dL (60-99); HDL Cholesterol 66 mg/dL (>40); LDL Cholesterol Calculated 85 mg/dL (<100); Potassium 3.9 mmol/L (3.3-5.1); Sodium 144 mmol/L (135-145); Triglycerides 106 mg/dL (<150)
[2024-09-22 19:33] LABS: Alanine Aminotransferase 14 U/L (0-31); Alkaline Phosphatase 96 U/L (39-117)
== END 2024-09-22 13:38 | disposition home or self-care (01) ==
LOC: HO.HMGCX 13:37
PROVIDERS: PCP Internal Medicine; Visit Provider Internal Medicine
DX: R10.9 Unspecified abdominal pain (principal); Z13.9 Encounter for screening, unspecified; Z13.29 Encounter for screening for other suspected endocrine disorder; Z13.220 Encounter for screening for lipoid disorders; Z13.0 Encounter for screening for diseases of the blood and blood-forming organs and certain disorders involving the immune mechanism
CPT/HCPCS: 36415; 76700; 80053; 80061; 84443; 85025

== ENCOUNTER 2024-10-07 09:22 | Outpatient (AMB) | payer MEDICARE, SELFPAY ==
--- NOTE | 2024-10-07 09:23 | MHC.PC.OV ---
Vital Signs 10/07/24 09:25 Height 5 ft 5 in Weight 137 lb 2 oz BMI 22.8 BP 120/70 Blood Pressure Location Rt brachial Position Sitting Pulse 66 Pulse Source Pulse Oximeter Pulse Oximetry (%) 93 Oxygen Delivery Method Nasal Cannula Intake Visit Reasons: 4 months f/u Intake Note: Patient is here to follow up on HTN, HLD, COPD. Request US results from 08/2024 Nail Technician Teacher Required: No Wringer And Setter: Present Accompanied by: Daughter Allergies sulfamethoxazole [From BACTRIM] Allergy (Unknown, Verified 10/07/24 09:25) RASH trimethoprim [From BACTRIM] Allergy (Unknown, Verified 10/07/24 09:25) RASH Medication List - Last Reconciled 10/07/24 by Liam Lloyd MD albuterol sulfate 90 mcg/actuation 2 puffs inhalation Q4-6H PRN amlodipine 5 mg PO DAILY dicyclomine 20 mg PO QID dicyclomine 20 mg PO QID fluticasone propion-salmeterol 250-50 mcg/dose (Wixela Inhub) 1 inh inhalation BID fluticasone propion-salmeterol 45-21 mcg/actuation (Advair HFA) 2 puffs inhalation BID ipratropium bromide 17 mcg/actuation (Atrovent HFA) 2 inhalations PO QID lidocaine 5% 1 patch topical DAILY PRN metoprolol tartrate 50 mg PO DAILY morphine 15 mg PO Q6H PRN 5 days simvastatin 20 mg PO DAILY triamterene-hydrochlorothiazid 37.5-25 mg 1 cap PO QAM Tobacco use date assessed: 10/07/24 Fall risk assessment: No Falls in past year Last assessed Fall Risk: 10/07/24 Dental Screening Dental Screen Date: 10/07/24 Did you have a dental visit in the last 12 months?: No Did you have a dental problem in the last 6 months where you did not have access to dental care?: No Was dental information given to patient?: No HPI 4 months f/u HPI Details COPD on 02; stable nd compliant [facility] Medical History On home O2 COPD (chronic obstructive pulmonary disease) On beta messi at home Hyperlipidemia Hypertension Surgical History History of cataract extraction History of surgery on arm History of hip surgery Family History Father Medical history unknown Mother Medical history unknown Brother No problems noted. Brother No problems noted. Son No problems noted. Son No problems noted. Daughter No problems noted. Social History Housing: House Are you a primary before and after school daycare worker to a significant other at home: No Do you presently have visiting nurse or other home services: No Alcohol intake: never Patient Tobacco Use Status: Former Tobacco user Tobacco use type: Cigarette e-Cigarette/Vaping Use: Never Used Second Hand Smoke Exposure: Yes service: No Current occupational status: retired Current occupational exposures/hazards: No Cognitive needs: Yes (Cane) Hearing needs: No Vision needs: No Questionnaire PHQ-9 Over the last 2 weeks, how often have you been bothered by any of the following problems? 1. Little interest or pleasure in doing things: not at all 2. Feeling down, depressed, or hopeless: not at all 3. Trouble falling or staying asleep, or sleeping too much: not at all 4. Feeling tired or having little energy: not at all 5. Poor appetite or overeating: not at all 6. Feeling bad about yourself - or that you are a failure or have let yourself or your family down: not at all 7. Trouble concentrating on things, such as reading the newspaper or watching television: not at all 8. Moving or speaking so slowly that other people could have noticed. Or the opposite - being so fidgety or restless that you have been moving around a lot more than usual: not at all 9. Thoughts that you would be better off or of hurting yourself in some way: not at all Total score: 0 Depression Screening Interpretation: Negative Depression Screening Done: Yes Source: Developed by Drs. Yeyo Wright, Samira Srivastava, Ernie Mcdonald and colleagues, with an educational monica from [employer]. Thrive Questionnaire Date Thrive assessed: 10/07/24 I am a: Patient What is your living situation today?: I have a steady place to live Within the past 12 months, did the food you bought not last and you didn't have the money to get more?: Never true Within the past 12 months, did you worry whether your food would run out before you got money to buy more?: Never true Do you have trouble paying for medicines?: No Do you have trouble getting transportation to medical appointments?: No Do you have trouble paying your heating and electricity bill?: No Do you have trouble taking care of your child, family member or friend?: No Do you have trouble with day-to-day activities such as bathing, preparing meals, shopping, managing finances, etc.?: No Are you currently unemployed and looking for a job?: No Are you interested in more education?: No Please select the resources that you would like help with: None Currently or been in a relationship where the following occur: No concerns reported THRIVE Score: 0 AUDIT C Alcohol Use Questionnaire (AUDIT-C) 1. How often do you have a drink containing alcohol?: Never Total Score: 0 SOFIA-7 AMB Questionnaire SOFIA-7 Date SOFIA - 7 assessed: 10/07/24 Feeling nervous, anxious, or on edge: 0 = Not at all Not being able to stop or control worryin = Not at all Worrying too much about different things: 0 = Not at all Trouble relaxin = Not at all Being so restless that it is hard to sit still: 0 = Not at all Becoming easily annoyed or irritable: 0 = Not at all Feeling afraid as if something awful might happen: 0 = Not at all Total SOFIA-7 score (0-4 normal; 5-9 mild; 10-14 moderate; 15-21 severe): 0 Source: Developed by Drs. Yeyo Wright, Samira Srivastava, Ernie Mcdonald and colleagues, with an educational monica from [employer]. Review of Systems Const Denies chills, Denies headache(s) and Denies weight loss ENT Denies headache(s) Card Denies chest pain, Denies syncope, Denies irregular heart rhythm and Denies dyspnea Resp Denies chest congestion, Denies cough and Denies dyspnea GI Denies abdominal pain, Denies change in stool character, Denies nausea and Denies vomiting Musc Denies deformity and Denies joint swelling Neuro Denies syncope and Denies headache(s) Physical exam (Primary Care) Vital Signs: Last Vital Signs Pulse 66 10/07/24 09:25 BP 120/70 10/07/24 09:25 Pulse Ox 93 10/07/24 09:25 Oxygen Delivery Method Nasal Cannula 10/07/24 09:25 BMI result Body Mass Index 22.8 Tobacco/Smoking Status: Tobacco use Status Tobacco use date assessed 10/07/24 10/07/24 09:30 Patient Tobacco Use Status Former Tobacco user 10/07/24 09:30 Tobacco use type Cigarette 10/07/24 09:30 e-Cigarette/Vaping Use Never Used 10/07/24 09:30 PHQ-9: PHQ-9 Score PHQ-9: Total score 0 10/07/24 09:30 Depression Screening Interpretation: Negative Thrive Assessment: Date of Thrive Assessment Date Thrive assessed 10/07/24 10/07/24 09:30 Currently or been in a relationship where the following occur: No concerns reported Const General: cooperative, comfortable, no acute distress and alert Neck Neck: Yes no lymphadenopathy Thyroid: Thyroid normal Resp Effort & Inspection: normal respiratory effort Auscultation: clear to auscultation bilaterally Percussion: percussion normal Cardio Jugular venous distension: no JVD Palpation: normal PMI Rate: regular rate Rhythm: regular rhythm Heart sounds: S1 normal heart sound present and S2 normal heart sound present GI Inspection: Yes normal to inspection Palpation (GI): No hepatosplenomegaly present Skin General skin exam: no rashes or lesions noted Extrem General: Yes no clubbing, cyanosis or edema Coding Level of Care Code Est Pt Level 3 (58750) Diagnoses COPD (chronic obstructive pulmonary disease) J44.9 Assessment & Plan Assessment & Plan (1) COPD (chronic obstructive pulmonary disease): Code(s): J44.9 - Chronic obstructive pulmonary disease, unspecified Category: Medical Plan: stable; same rx
[2024-10-07 09:25] VITALS: BP 120/70; PULSE 66; O2SAT 93; BMI 22.8
== END 2024-10-07 09:50 | disposition home or self-care (01) ==
PROVIDERS: PCP Internal Medicine; Visit Provider Internal Medicine
DX: J44.9 Chronic obstructive pulmonary disease, unspecified (principal)

== ENCOUNTER → 2024-10-07 09:22 | Outpatient (BNVA) | payer MEDICARE, SELFPAY | PROVIDERS: PCP Internal Medicine; Visit Provider Internal Medicine | DX: J44.9 Chronic obstructive pulmonary disease, unspecified (principal) | CPT/HCPCS: 96127; 99212 ==

== ENCOUNTER 2025-06-02 15:41 | Outpatient (AMB) | payer MEDICARE, SELFPAY ==
[2025-06-02 15:47] VITALS: BP 140/68; PULSE 70; RESP 18; TEMP 36.2; O2SAT 89; BMI 22.9
--- NOTE | 2025-06-02 15:47 | MHC.PC.OV ---
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 Accompanied by: Self / Same As Patient Allergies sulfamethoxazole (From [facility]) Allergy (Unknown, Verified 06/02/25 16:02) RASH trimethoprim (From [facility]ACT[facility]) Allergy (Unknown, Verified 06/02/25 16:02) RASH Medication List - Last Reconciled 06/02/25 by Sondra Turner MD albuterol sulfate 90 mcg/actuation 2 puffs inhalation Q4-6H PRN amlodipine 5 mg PO DAILY fluticasone propion-salmeterol 250-50 mcg/dose (Wixela Inhub) 1 inh inhalation BID ipratropium bromide 17 mcg/actuation (Atrovent HFA) 2 inhalations PO QID metoprolol tartrate 50 mg PO DAILY simvastatin 20 mg PO DAILY triamterene-hydrochlorothiazid 37.5-25 mg 1 cap PO QAM Tobacco use date assessed: 06/02/25 Fall risk assessment: 1 Fall in past year Last assessed Fall Risk: 06/02/25 Dental Screening Dental Screen Date: 06/02/25 Did you have a dental visit in the last 12 months?: No Did you have a dental problem in the last 6 months where you did not have access to dental care?: No Was dental information given to patient?: No HPI HPI Comments History of Present Illness Details This is an 84-year-old female with hypertension, hyperlipidemia and COPD that complains of seasonal allergic rhinitis that has been bothering her with runny nose and sneezing. Will start her on nasal spray and antihistamines as needed. Blood pressure borderline normal to elevated today. Blood pressure goal should be less than 130/80. On statins for hyperlipidemia and lipid panel will be checked in 6 months. On long-acting inhaler for COPD and she is follow by [facility] pulmonary. No chest pain or shortness on breath. [facility] Medical History (Updated 06/02/25 @ 16:09 by Sondra Turner MD) On home O2 COPD (chronic obstructive pulmonary disease) On beta messi at home Hyperlipidemia Hypertension Surgical History History of cataract extraction History of surgery on arm History of hip surgery Family History Father Medical history unknown Mother Medical history unknown Brother No problems noted. Brother No problems noted. Son No problems noted. Son No problems noted. Daughter No problems noted. Social History Housing: House Are you a primary healthcare manager to a significant other at home: No Do you presently have visiting nurse or other home services: No Alcohol intake: never Patient Tobacco Use Status: Former Tobacco user Tobacco use type: Cigarette e-Cigarette/Vaping Use: Never Used Second Hand Smoke Exposure: Yes service: No Current occupational status: retired Current occupational exposures/hazards: No Cognitive needs: Yes (Cane) Hearing needs: No Vision needs: No Questionnaire PHQ-9 Over the last 2 weeks, how often have you been bothered by any of the following problems? 1. Little interest or pleasure in doing things: not at all 2. Feeling down, depressed, or hopeless: not at all 3. Trouble falling or staying asleep, or sleeping too much: several days 4. Feeling tired or having little energy: several days 5. Poor appetite or overeating: not at all 6. Feeling bad about yourself - or that you are a failure or have let yourself or your family down: not at all 7. Trouble concentrating on things, such as reading the newspaper or watching television: not at all 8. Moving or speaking so slowly that other people could have noticed. Or the opposite - being so fidgety or restless that you have been moving around a lot more than usual: not at all 9. Thoughts that you would be better off or of hurting yourself in some way: not at all Total score: 2 Depression Screening Interpretation: Negative Depression Screening Done: Yes 24577 - PHQ-9 Billing: Yes Source: Developed by Drs. Yeyo Wright, Samira Srivastava, Ernie Mcdonald and colleagues, with an educational monica from [employer]. Thrive Questionnaire Date Thrive assessed: 06/02/25 I am a: Patient What is your living situation today?: I have a steady place to live Within the past 12 months, did the food you bought not last and you didn't have the money to get more?: Never true Within the past 12 months, did you worry whether your food would run out before you got money to buy more?: Never true Do you have trouble paying for medicines?: No Do you have trouble getting transportation to medical appointments?: No Do you have trouble paying your heating and electricity bill?: No Do you have trouble taking care of your child, family member or friend?: No Do you have trouble with day-to-day activities such as bathing, preparing meals, shopping, managing finances, etc.?: No Are you currently unemployed and looking for a job?: No Are you interested in more education?: No Please select the resources that you would like help with: None Currently or been in a relationship where the following occur: No concerns reported THRIVE Score: 0 AUDIT C Alcohol Use Questionnaire (AUDIT-C) 1. How often do you have a drink containing alcohol?: Never Total Score: 0 Score Reviewed/Action Taken: No SOFIA-7 AMB Questionnaire SOFIA-7 Date SOFIA - 7 assessed: 06/02/25 Feeling nervous, anxious, or on edge: 0 = Not at all Not being able to stop or control worryin = Not at all Worrying too much about different things: 0 = Not at all Trouble relaxin = Not at all Being so restless that it is hard to sit still: 0 = Not at all Becoming easily annoyed or irritable: 0 = Not at all Feeling afraid as if something awful might happen: 0 = Not at all Total SOFIA-7 score (0-4 normal; 5-9 mild; 10-14 moderate; 15-21 severe): 0 Source: Developed by Drs. Yeyo Wright, Samira Srivastava, Ernie Mcdonald and colleagues, with an educational monica from [employer]. SOFIA-7 Assessment Billing SOFIA-7 Assessment Tool: SOFIA-7 Assessment 65585 Review of Systems Const All systems reviewed & are unremarkable except as noted in HPI and below Card Denies chest pain at rest, Denies chest pain with activity, Denies edema, Denies irregular heart rhythm, Denies claudication, Denies dyspnea, Denies dyspnea on exertion, Denies orthopnea, Denies paroxysmal nocturnal dyspnea and Denies slow heart rate Resp Denies cough, Denies dyspnea and Denies dyspnea on exertion Physical exam (Primary Care) Vital Signs: Last Vital Signs Temp 97.1 F 06/02/25 15:47 Pulse 70 06/02/25 15:47 Resp 18 06/02/25 15:47 BP 140/68 H 06/02/25 15:47 Pulse Ox 89 L 06/02/25 15:47 Oxygen Delivery Method Room Air 06/02/25 15:47 BMI result Body Mass Index 22.9 Tobacco/Smoking Status: Tobacco use Status Tobacco use date assessed 06/02/25 06/02/25 15:50 Patient Tobacco Use Status Former Tobacco user 06/02/25 15:50 Tobacco use type Cigarette 06/02/25 15:50 e-Cigarette/Vaping Use Never Used 06/02/25 15:50 PHQ-9: PHQ-9 Score PHQ-9: Total score 2 06/02/25 16:00 Depression Screening Interpretation: Negative Thrive Assessment: Date of Thrive Assessment Date Thrive assessed 06/02/25 06/02/25 15:50 Currently or been in a relationship where the following occur: No concerns reported Const Limitations: ambulation with cane Resp Effort & Inspection: normal respiratory effort Auscultation: clear to auscultation bilaterally Cardio Jugular venous distension: no JVD Rate: regular rate Rhythm: regular rhythm Heart sounds: S1 normal heart sound present and S2 normal heart sound present Extrem General: Yes full ROM Coding Level of Care Code Est Pt Level 4 (47304) Complex EM visit Add On G2211 Diagnoses COPD (chronic obstructive pulmonary disease) J44.9 Hypertension I10 Hyperlipidemia E78.5 Seasonal allergic rhinitis J30.2 Additional Codes PHQ-9 - 82096 - PHQ-9 Billing: Yes ([id number]) SOFIA-7 Assessment Billing - SOFIA-7 Assessment Tool: SOFIA-7 Assessment 74134 ([id number]) Time Spent (min) 21 Assessment & Plan Assessment & Plan (1) COPD (chronic obstructive pulmonary disease): Code(s): J44.9 - Chronic obstructive pulmonary disease, unspecified Category: Medical (2) Hypertension: Code(s): I10 - Essential (primary) hypertension Category: Medical (3) Hyperlipidemia: Code(s): E78.5 - Hyperlipidemia, unspecified Category: Medical (4) Seasonal allergic rhinitis: Code(s): J30.2 - Other seasonal allergic rhinitis Category: Medical Plan Continue current meds. Blood pressure goal is equal or less than 130/80. Start antihistamines and Flonase as needed. Follow-up with [facility] pulmonary for COPD. Orders: Orders Vitamin D 25-OH Total 6 Months E55.9 - Vitamin D deficiency, unspecified Comprehensive [place]. Panel Fast 6 Months I10 - Essential (primary) hypertension Lipid Panel 6 Months E78.5 - Hyperlipidemia, unspecified Medications: New fluticasone propionate 50 mcg/actuation (Flonase Allergy Relief) administer into each nostril 1 spray intranasal DAILY 16 grams 3RF 30 days J30.2 - Other seasonal allergic rhinitis levocetirizine 5 mg PO DAILY PRN 90 tabs 1RF allergy symptoms 90 days Refilled simvastatin 20 mg PO DAILY 90 tabs 3RF triamterene-hydrochlorothiazid 37.5-25 mg 1 cap PO QAM 90 caps 3RF amlodipine 5 mg PO DAILY 90 tabs 3RF ipratropium bromide 17 mcg/actuation (Atrovent HFA) 2 inhalations PO QID 51.6 grams 3RF
== END 2025-06-02 16:15 | disposition home or self-care (01) ==
LOC: HO.HMCH 15:42
PROVIDERS: PCP Internal Medicine; Visit Provider Internal Medicine
DX: J44.9 Chronic obstructive pulmonary disease, unspecified (principal); I10 Essential (primary) hypertension; E78.5 Hyperlipidemia, unspecified; J30.2 Other seasonal allergic rhinitis

== ENCOUNTER → 2025-06-02 15:41 | Outpatient (BNVA) | payer MEDICARE, SELFPAY | PROVIDERS: PCP Internal Medicine; Visit Provider Internal Medicine | DX: I10 Essential (primary) hypertension (principal); E78.5 Hyperlipidemia, unspecified; J44.9 Chronic obstructive pulmonary disease, unspecified; J30.2 Other seasonal allergic rhinitis; E55.9 Vitamin D deficiency, unspecified; Z79.899 Other long term (current) drug therapy | CPT/HCPCS: 96127; 99212 ==